=== PATIENT | male | born 1975 ===

== ENCOUNTER 2016-12-24 16:00 | Inpatient (IN) | payer BC ==
[2016-12-24] MEDS ORDERED: ceFAZolin 1 GM in Sodium Chloride 0.9% 100 ML IVPB ONE (16:24)
[2016-12-24] MEDS ORDERED: TDAP Vaccine 0.5 mL Syr IM ONE (16:25)
--- NOTE | 2016-12-24 16:52 | RAD ---
PROCEDURE: Right Knee Radiographs. HISTORY: COMPARISON: None available. FINDINGS: BONES: No acute displaced fracture. JOINTS: No dislocation. JOINT EFFUSION: Small suprapatellar joint effusion. OTHER FINDINGS: None. IMPRESSION: Small suprapatellar joint. No acute displaced fracture or dislocation identified. If symptoms persist, or if there is continued clinical concern, x-ray follow-up in 7-10 days should be considered.
--- NOTE | 2016-12-24 17:05 | ED PDOC ---
Lower Extremity Pain/Injury Chief Complaint (Nursing): Lower Extremity Problem/Injury Chief Complaint (Provider): left knee pain History Per: Patient History/Exam Limitations: no limitations Onset/Duration Of Symptoms: Days (x 2) Current Symptoms Are (Timing): Still Present Additional Complaint(s): Kamar Martinez is a 41 year old male, with no previous medical history, who presents to the ED with complaints of right knee pain with associated swelling secondary to being struck with an object 2 days ago while walking. Patient denies any fever, chills or IV drug abuse. He is unsure of last tetanus vaccination. PMD: none provided Past Medical History Reviewed: Historical Data, Nursing Documentation, Vital Signs Vital Signs: Last Vital Signs Temp 98.5 F 12/24/16 16:05 Pulse 88 12/24/16 16:05 Resp 16 12/24/16 16:05 BP 129/68 12/24/16 16:05 Pulse Ox 100 12/24/16 16:05 - Medical History PMH: No Chronic Diseases Denies: Diabetes, HTN - Surgical History Surgical History: Appendectomy - Family History Family History: States: Unknown Family Hx - Allergies Allergies/Adverse Reactions: Allergies Allergy/AdvReac Type Severity Reaction Status Date / Time No Known Allergies Allergy Verified 12/24/16 16:05 Review of Systems ROS Statement: Except As Marked, All Systems Reviewed And Found Negative Constitutional: Negative for: Fever, Chills Musculoskeletal: Positive for: Leg Pain (right knee pain ) Physical Exam - Reviewed Nursing Documentation Reviewed: Yes Vital Signs Reviewed: Yes - Physical Exam Appears: Positive for: Well, Non-toxic, No Acute Distress Extremity: Positive for: Capillary Refill (< 2 seconds ), Other (6 cm in diameter redness and heat fromt the right knee with small wound noted anteriorly by the patella. No effusion noted ). Negative for: Calf Tenderness, Deformity Neurologic/Psych: Positive for: Alert, Oriented - Laboratory Results Result Diagrams: 12/24/16 16:50 12/24/16 16:50 - ECG O2 Sat by Pulse Oximetry: 100 (RA) Pulse Ox Interpretation: Normal - Progress ED Course And Treament: VANCOMYCIN 1 GM IV ANCEF 1 GM IV TDAP 0.5 ML IM X1 DOSE KNEE XRY: SMALL SUPRAPATELLAR EFFUSION D/W DR. PADRON D/W DR. JAVED WILL CONSULT ORTHO CALL PLACED TO DR. AIME MCKEON Medical Decision Making Medical Decision Making: Initial Impression: right knee pain Initial Plan: * labs * lactic acid * erythrocyte sedimentation rate * x-ray right knee * ancef * boostrix vaccine * vancomycin * blood culture * reevaluation Scribe Attestation: Documented by Ginger Art, acting as a scribe for Leigha Hu PA-C. Provider Scribe Attestation: All medical record entries made by the Scribe were at my direction and personally dictated by me. I have reviewed the chart and agree that the record accurately reflects my personal performance of the history, physical exam, medical decision making, and the department course for this patient. I have also personally directed, reviewed, and agree with the discharge instructions and disposition. Disposition - Clinical Impression Clinical Impression: Cellulitis of knee - Patient ED Disposition Is Patient to be Admitted: Yes - Disposition Disposition Time: 18:32 Condition: FAIR - Pt Status Changed To: Hospital Disposition Of: Inpatient - Admit Certification Admit to Inpatient:: After my assessment, the patient will require hospitalization for at least two midnights. This is because of the severity of symptoms shown, intensity of services needed, and/or the medical risk in this patient being treated as an outpatient.
[2016-12-24] MEDS ORDERED: Vancomycin 1 g Inj ONE (17:09)
[2016-12-24 17:24] LABS: BASO % 0.2 % (0.0-2.0); EOS # 0.1 K/uL (0.0-0.7); EOS % 0.4 % (0.0-4.0); HEMATOCRIT 42.9 % (35.0-51.0); LYMPH # 2.6 K/uL (1.0-4.3); MEAN CELL VOLUME 88.1 fl (80.0-94.0); MEAN CORPUSCULAR HEMOGLOBIN 30.4 pg (27.0-31.0); MEAN CORPUSCULAR HGB CONC 34.5 g/dL (33.0-37.0); MEAN PLATELET VOLUME 7.9 fl (7.2-11.7); MONO # 1.7 K/uL (0.0-0.8); MONO % 10.3 % (0.0-10.0); NEUT # 11.7 K/uL (1.8-7.0); NEUT % 73.1 % (50.0-75.0); NRBC % 0.1 % (0.0-0.0); RED CELL DISTRIBUTION WIDTH 13.2 % (11.5-14.5)
[2016-12-24 17:29] LABS: ALB/GLOB RATIO 1.2 (1.0-2.1); ALKALINE PHOSPHATASE 75 U/L (38-126); ALT/SGPT 54 U/L (21-72); AST/SGOT 38 U/L (17-59); BILIRUBIN,TOTAL 0.6 mg/dl (0.2-1.3); BLOOD UREA NITROGEN 13 mg/dl (9-20); CALCIUM 9.5 mg/dL (8.4-10.2); CARBON DIOXIDE 27 mmol/L (22-30); CHLORIDE 102 mmol/L (98-107); GFR AFRICAN-AMERICAN > 60; GLUCOSE,RANDOM 92 mg/dL (75-110); POTASSIUM 3.9 MMOL/L (3.6-5.0); SODIUM 141 mmol/l (132-148); TOTAL PROTEIN 8.6 G/DL (6.3-8.2)
[2016-12-24] MEDS ORDERED: Oxycodone/Acetaminophen 5/325 mg Tab PO PRN (23:26)
[2016-12-25] MEDS ORDERED: Gadodiamide 287 MG/ML VIAL (15ML) IV ONE (08:22)
--- NOTE | 2016-12-25 11:22 | CP.PCM.CON ---
History of Present Illness - History of Present Illness History of Present Illness: Infectious Disease Consultation Note- Asked to see this patient at the request of for right knee cellulitis. HPI- Pt. is a 41 year old male with no PMH who was admitted with right knee pain, swelling and redness which as per pt. developed few days ago after insect bite. He states he felt slight itching at first on the knee and the next day the knee became swollen , red , warm and painful. He denies any discharge from the region. He states had fevr at home but not now. Denies any N/V, denies any COULTER, denies any cough, denies any sob, denies any chest pain, denies any abd. pain, denies any dysurea, denies any diarrhea. Denies any recent travel denies any pet exposure. denies any past h/o cellulitis. Pt. states he feels much better compared to admission and that his knee swelling has decreased compared to yesterday . PMHx: NC FHx: NC Social hx: denies x3 Allergies: NKDA Review of Systems - Review of Systems Review of Systems: ROS- see HPI please. Past Patient History - Past Medical History & Family History Past Medical History?: No - Past Social History Smoking Status: Never Smoked Alcohol: Social Drugs: Denies Home Situation {Lives}: With Family - CARDIAC Hx Cardiac Disorders: No - PULMONARY Hx Respiratory Disorders: No - NEUROLOGICAL Hx Neurological Disorder: No - HEENT Hx HEENT Problems: No - RENAL Hx Chronic Kidney Disease: No - ENDOCRINE/METABOLIC Hx Endocrine Disorders: No - HEMATOLOGICAL/ONCOLOGICAL Hx Blood Disorders: No - INTEGUMENTARY Hx Dermatological Problems: No - MUSCULOSKELETAL/RHEUMATOLOGICAL Hx Falls: No - GENITOURINARY/GYNECOLOGICAL Hx Genitourinary Disorders: Yes - PSYCHIATRIC Hx Substance Use: No - SURGICAL HISTORY Hx Surgeries: Yes Hx Appendectomy: Yes - ANESTHESIA Hx Anesthesia: No Hx Anesthesia Reactions: No Hx Malignant Hyperthermia: No Has any member of the family had a problem w/ anesthesia?: No Meds Allergies/Adverse Reactions: Allergies Allergy/AdvReac Type Severity Reaction Status Date / Time No Known Allergies Allergy Verified 12/24/16 16:05 - Medications Medications: Current Medications Acetaminophen (Tylenol 325mg Tab) 650 mg PO Q6 PRN PRN Reason: Fever >100.4 F Ibuprofen (Motrin Tab) 600 mg PO Q6 PRN PRN Reason: Pain, moderate (4-7) Oxycodone/Acetaminophen (Percocet 5/325 Mg Tab) 1 tab PO Q6 PRN PRN Reason: Pain, severe (8-10) Stop: 12/27/16 23:27 Last Admin: 12/25/16 02:41 Dose: 1 tab Physical Exam - Constitutional Appears: No Acute Distress - Head Exam Head Exam: ATRAUMATIC - Eye Exam Eye Exam: EOMI, PERRL - ENT Exam ENT Exam: Normal Oropharynx - Neck Exam Neck exam: Positive for: Full Rom - Respiratory Exam Respiratory Exam: Clear to Auscultation Bilateral, NORMAL BREATHING PATTERN - Cardiovascular Exam Cardiovascular Exam: RRR, +S1, +S2 - GI/Abdominal Exam GI & Abdominal Exam: Normal Bowel Sounds, Soft Additional comments: NT, ND - Extremities Exam Additional comments: Right patellar and suprapatellar region with some edema and warm to touch and erythematous, has FROM, no discharge minimal tenderness only to touch - Neurological Exam Neurological exam: Alert, Oriented x3 Results - Vital Signs Recent Vital Signs: Last Vital Signs Temp 98.6 F 12/25/16 07:39 Pulse 85 12/25/16 07:39 Resp 17 12/25/16 07:39 BP 123/79 12/25/16 07:39 Pulse Ox 98 12/25/16 07:39 - Labs Result Diagrams: 12/25/16 11:15 12/24/16 16:50 Labs: Laboratory Results - last 72 hr 12/24/16 12/24/16 12/24/16 16:50 16:50 16:50 WBC 16.0 H RBC 4.88 Hgb 14.8 Hct 42.9 MCV 88.1 MCH 30.4 MCHC 34.5 RDW 13.2 Plt Count 328 MPV 7.9 Neut % (Auto) 73.1 Lymph % (Auto) 16.0 L [place] % (Auto) 10.3 H Eos % (Auto) 0.4 Baso % (Auto) 0.2 Neut # 11.7 H Lymph # 2.6 [place] # 1.7 H Eos # 0.1 Baso # 0.0 ESR 45 H Sodium 141 Potassium 3.9 Chloride 102 Carbon Dioxide 27 Anion Gap 16 BUN 13 Creatinine 0.9 Est GFR ( Amer) > 60 Est GFR (Non-Af Amer) > 60 Random Glucose 92 Lactic Acid 1.7 Calcium 9.5 Total Bilirubin 0.6 AST 38 ALT 54 Alkaline Phosphatase 75 Total Protein 8.6 H Albumin 4.7 Globulin 3.9 Albumin/Globulin Ratio 1.2 12/25/16 11:15 WBC 14.9 H RBC 4.92 Hgb 14.6 Hct 43.6 MCV 88.6 MCH 29.7 MCHC 33.5 RDW 12.8 Plt Count 330 MPV 7.6 Neut % (Auto) 68.8 Lymph % (Auto) 17.1 L [place] % (Auto) 13.3 H Eos % (Auto) 0.4 Baso % (Auto) 0.4 Neut # 10.2 H Lymph # 2.5 [place] # 2.0 H Eos # 0.1 Baso # 0.1 ESR 56 H Sodium Potassium Chloride Carbon Dioxide Anion Gap BUN Creatinine Est GFR ( Amer) Est GFR (Non-Af Amer) Random Glucose Lactic Acid Calcium Total Bilirubin AST ALT Alkaline Phosphatase Total Protein Albumin Globulin Albumin/Globulin Ratio Accession No. : [id number] Patient Name / ID : CHAD YOST A / [id number] Exam Date : 12/24/2016 16:34:08 ( Approved ) Study Comment : Sex / Age : M / [id number] Creator : Jessi Magallon MD Dictator : Jessi Magallon MD Bench Hand : Office Analyst : Jessi Magallon MD Approver2 : Report Date : 12/24/2016 16:51:03 My Comment : PROCEDURE: Right Knee Radiographs. HISTORY: COMPARISON: None available. FINDINGS: BONES: No acute displaced fracture. JOINTS: No dislocation. JOINT EFFUSION: Small suprapatellar joint effusion. OTHER FINDINGS: None. IMPRESSION: Small suprapatellar joint. No acute displaced fracture or dislocation identified. If symptoms persist, or if there is continued clinical concern, x-ray follow-up in 7-10 days should be considered. Assessment & Plan (1) Cellulitis of knee Status: Acute - Assessment and Plan (Free Text) Assessment: A/P- 41 year old male with no PMH presents with right knee cellulitis. low grade fever and leukocytosis present but wbc trending down compared to admission. no fx based on plain xray report. plan- check blood cx x 2. await Knee MRI report r/o abscess and r/o Bursitis. Advise to cover with broad spectrum coverage for gram positives and MRSA , hence advise to start pt. on IV vancomycin pending further results. Keep trough <15. monitor wbc. If no resolution and if there is any fluid collection may need I and D. can apply warm compress to the region as well to help reduce inflammation. All above d/w patient at length and he verbalizes full understanding of all above. Thank you for allowing me to take part in the care of this patient.
[2016-12-25 11:30] LABS: BASO # 0.1 K/uL (0.0-0.2); BASO % 0.4 % (0.0-2.0); EOS # 0.1 K/uL (0.0-0.7); EOS % 0.4 % (0.0-4.0); HEMATOCRIT 43.6 % (35.0-51.0); LYMPH # 2.5 K/uL (1.0-4.3); LYMPH % 17.1 % (20.0-40.0); MEAN CELL VOLUME 88.6 fl (80.0-94.0); MEAN CORPUSCULAR HEMOGLOBIN 29.7 pg (27.0-31.0); MEAN CORPUSCULAR HGB CONC 33.5 g/dL (33.0-37.0); MEAN PLATELET VOLUME 7.6 fl (7.2-11.7); MONO % 13.3 % (0.0-10.0); NEUT # 10.2 K/uL (1.8-7.0); NEUT % 68.8 % (50.0-75.0); RED CELL DISTRIBUTION WIDTH 12.8 % (11.5-14.5); WHITE BLOOD COUNT 14.9 K/uL (4.8-10.8)
--- NOTE | 2016-12-25 11:37 | CP.PCM.HP ---
<Andressa Mcintyre - Last Filed: 12/25/16 11:34> History of Present Illness - History of Present Illness History of Present Illness: 41yo M with no PMHx admitted for right knee cellulitis. pain, swelling, erythema x4 days after trauma to the knee. a/w subjective fever. PMHx: NC SHx: appy FHx: NC Social hx: denies x3 Allergies: NKDA evaluated with attending Present on Admission - Present on Admission Any Indicators Present on Admission: No Review of Systems - Constitutional Constitutional: absent: Chills, Fever - Cardiovascular Cardiovascular: absent: Chest Pain - Respiratory Respiratory: absent: Dyspnea - Genitourinary Genitourinary: absent: Dysuria, Hematuria - Musculoskeletal Additional comments: right knee pain - Neurological Neurological: absent: Headaches Past Patient History - Past Medical History & Family History Past Medical History?: No - Past Social History Smoking Status: Never Smoked - CARDIAC Hx Cardiac Disorders: No - PULMONARY Hx Respiratory Disorders: No - NEUROLOGICAL Hx Neurological Disorder: No - HEENT Hx HEENT Problems: No - RENAL Hx Chronic Kidney Disease: No - ENDOCRINE/METABOLIC Hx Endocrine Disorders: No - HEMATOLOGICAL/ONCOLOGICAL Hx Blood Disorders: No - INTEGUMENTARY Hx Dermatological Problems: No - MUSCULOSKELETAL/RHEUMATOLOGICAL Hx Falls: No - GENITOURINARY/GYNECOLOGICAL Hx Genitourinary Disorders: Yes - PSYCHIATRIC Hx Substance Use: No - SURGICAL HISTORY Hx Surgeries: Yes Hx Appendectomy: Yes - ANESTHESIA Hx Anesthesia: No Hx Anesthesia Reactions: No Hx Malignant Hyperthermia: No Has any member of the family had a problem w/ anesthesia?: No Meds Allergies/Adverse Reactions: Allergies Allergy/AdvReac Type Severity Reaction Status Date / Time No Known Allergies Allergy Verified 12/24/16 16:05 Physical Exam - Constitutional Appears: Non-toxic, No Acute Distress - Head Exam Head Exam: NORMAL INSPECTION - Eye Exam Eye Exam: Normal appearance - ENT Exam ENT Exam: Mucous Membranes Moist - Neck Exam Neck exam: Positive for: Normal Inspection - Respiratory Exam Respiratory Exam: Clear to Auscultation Bilateral - Cardiovascular Exam Cardiovascular Exam: REGULAR RHYTHM - GI/Abdominal Exam GI & Abdominal Exam: Normal Bowel Sounds, Soft - Extremities Exam Extremities exam: Positive for: tenderness (right knee) Additional comments: right knee erythema, no induration/fluctuance - Back Exam Back exam: NORMAL INSPECTION - Neurological Exam Neurological exam: Alert, Oriented x3 - Skin Skin Exam: Dry, Warm Results - Vital Signs Recent Vital Signs: Last Vital Signs Temp 98.6 F 12/25/16 07:39 Pulse 85 12/25/16 07:39 Resp 17 12/25/16 07:39 BP 123/79 12/25/16 07:39 Pulse Ox 98 12/25/16 07:39 - Labs Result Diagrams: 12/24/16 16:50 12/24/16 16:50 Assessment & Plan - Assessment and Plan (Free Text) Assessment: 41yo M with no PMHx admitted for right knee cellulitis. cellulitis -ortho c/s -ID c/s -ancef/vanco -MRI DVT ppx -SCDs Decision To Admit - Pt Status Changed To: Hospital Disposition Of: Inpatient - Admit Certification Admit to Inpatient:: After my assessment, the patient will require hospitalization for at least two midnights. This is because of the severity of symptoms shown, intensity of services needed, and/or the medical risk in this patient being treated as an outpatient. - . Bed Request Type: Med/Surg Admitting Physician: Dedrick Vee <Dedrick Vee - Last Filed: 12/28/16 17:51> Results - Vital Signs Recent Vital Signs: Last Vital Signs Temp 98.8 F 12/28/16 16:21 Pulse 79 12/28/16 16:21 Resp 20 12/28/16 16:21 BP 136/75 12/28/16 16:21 Pulse Ox 97 12/28/16 16:21 - Labs Result Diagrams: 12/28/16 07:05 12/28/16 07:05 Labs: Laboratory Results - last 24 hr 12/28/16 12/28/16 12/28/16 07:05 07:05 07:05 WBC 9.8 RBC 4.73 Hgb 14.1 Hct 41.6 MCV 87.9 MCH 29.9 MCHC 34.0 RDW 13.0 Plt Count 387 Sodium 141 Potassium 3.9 Chloride 104 Carbon Dioxide 27 Anion Gap 15 BUN 12 Creatinine 1.0 Est GFR ( Amer) > 60 Est GFR (Non-Af Amer) > 60 Random Glucose 96 Calcium 9.3 Vancomycin Trough 8.4 Assessment & Plan - Assessment and Plan (Free Text) Assessment: Patient seen and examined with residents in rounds. Case, condition, investigative work up and plan discussed in detail. Agree with residents progress note. Plan: As ordered. (Dedrick Vee MD)
--- NOTE | 2016-12-25 13:03 | MRI ---
MRI right knee History: Cellulitis. Evaluate for septic arthritis. Comparison: None available. Technique: Multi-echo multiplanar sequences were performed through the right knee without and with the use of intravenous contrast. Findings: Prominent reticulation and edema with fluid noted within the prepatellar soft tissues consistent with a prominent prepatellar bursitis. Within the soft tissues anterior to the patellar tendon there is a peripherally enhancing collection measuring 2.1 x 1.6 x 2.8 centimeters which may represent a prepatellar abscess collection. No signal abnormality within the adjacent bony patella to suggest acute osteomyelitis. No significant knee joint effusion to suggest a septic arthritis. Thinning and attenuation with fraying of the visualized anterior cruciate ligament suggestive for a moderate grade sprain with some interstitial delamination. Moderate grade sprain of the posterior cruciate ligament. Limited evaluation of the menisci given lack of PD fat sat and STIR sequences. Globular increased signal seen within the posterior horn of the medial meniscus extending to the articular surface suggestive for intrasubstance degeneration and or partial tear. Linear grade 1 intrasubstance degeneration and or partial tearing in the anterior root and horn of the lateral meniscus. Circumferential reticulation and edema within the soft tissues. Medial collateral ligament is preserved. Lateral collateral ligament complex structures are preserved. Quadriceps tendon is preserved. Patellar tendon is preserved. Focal cartilage thinning and loss overlying the patellar apex and lateral aspect of the medial patellar facet. Moderate grade strains of the medial and lateral patellar retinaculum. Mild cartilage thinning overlying the anterior aspect of the medial femoral condyle. No significant suprapatellar joint effusion. Trace posterior Begum's cyst. Impression: 1. Prominent reticulation and edema with fluid noted within the prepatellar soft tissues consistent with a prominent prepatellar bursitis. Within the soft tissues anterior to the patellar tendon there is a peripherally enhancing collection measuring 2.1 x 1.6 x 2.8 centimeters which may represent a prepatellar abscess collection. No signal abnormality within the adjacent bony patella to suggest acute osteomyelitis. No significant knee joint effusion to suggest a septic arthritis. 2. Thinning and attenuation with fraying of the visualized anterior cruciate ligament suggestive for a moderate grade sprain with some interstitial delamination. 3. Moderate grade sprain of the posterior cruciate ligament. 4. Limited evaluation of the menisci given lack of PD fat sat and STIR sequences. Globular increased signal seen within the posterior horn of the medial meniscus extending to the articular surface suggestive for intrasubstance degeneration and or partial tear. 5. Linear grade 1 intrasubstance degeneration and or partial tearing in the anterior root and horn of the lateral meniscus. 6. Circumferential reticulation and edema within the soft tissues. 7. Focal cartilage thinning and loss overlying the patellar apex and lateral aspect of the medial patellar facet. 8. Moderate grade strains of the medial and lateral patellar retinaculum. 9. Mild cartilage thinning overlying the anterior aspect of the medial femoral condyle. 10. Trace posterior Begum's cyst.
--- NOTE | 2016-12-25 14:28 | CP.PCM.CON ---
History of Present Illness - History of Present Illness History of Present Illness: 41 yo male presents to ER yesterday with right knee swelling,redness,warmth and pain >with bending x 2 day's,pt states he thinks he was bit by an insect 4 day' s ago,scratched raised bite causing an abrasion,no local wound care done, symptoms worsening daily which brought pt to ER for further evaluation,felt feverish yesterday,temp not taken,given a dose of Vanco/Ancef and tetanus in ER, currently on Ancef and pt states redness,edema and pain improved since yesterday ,denies trauma,paresthesias,fall,inability to ambulation or prior knee c/o. 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 Alcohol: Occasional Drugs: Denies Home Situation {Lives}: With Family - CARDIAC Hx Cardiac Disorders: No - PULMONARY Hx Respiratory Disorders: No - NEUROLOGICAL Hx Neurological Disorder: No - HEENT Hx HEENT Problems: No - RENAL Hx Chronic Kidney Disease: No - ENDOCRINE/METABOLIC Hx Endocrine Disorders: No - HEMATOLOGICAL/ONCOLOGICAL Hx Blood Disorders: No - INTEGUMENTARY Hx Dermatological Problems: No - MUSCULOSKELETAL/RHEUMATOLOGICAL Hx Falls: No - GENITOURINARY/GYNECOLOGICAL Hx Genitourinary Disorders: Yes - PSYCHIATRIC Hx Substance Use: No - SURGICAL HISTORY Hx Surgeries: Yes Hx Appendectomy: Yes - ANESTHESIA Hx Anesthesia: No Hx Anesthesia Reactions: No Hx Malignant Hyperthermia: No Has any member of the family had a problem w/ anesthesia?: No Meds Allergies/Adverse Reactions: Allergies Allergy/AdvReac Type Severity Reaction Status Date / Time No Known Allergies Allergy Verified 12/24/16 16:05 - Medications Medications: Current Medications Acetaminophen (Tylenol 325mg Tab) 650 mg PO Q6 PRN PRN Reason: Fever >100.4 F Vancomycin HCl 1 gm/ Sodium (Chloride) 250 mls @ 166.667 mls/hr IVPB DAILY [facility] Cefazolin Sodium 1 gm/ Sodium (Chloride) 100 mls @ 100 mls/hr IVPB Q12 [facility] Vancomycin HCl 1 gm/ Sodium (Chloride) 250 mls @ 166.667 mls/hr IVPB Q12 [facility] Ibuprofen (Motrin Tab) 600 mg PO Q6 PRN PRN Reason: Pain, moderate (4-7) Oxycodone/Acetaminophen (Percocet 5/325 Mg Tab) 1 tab PO Q6 PRN PRN Reason: Pain, severe (8-10) Stop: 12/27/16 23:27 Last Admin: 12/25/16 02:41 Dose: 1 tab Physical Exam - Constitutional Appears: Well, Non-toxic, No Acute Distress - Head Exam Head Exam: ATRAUMATIC, NORMAL INSPECTION, NORMOCEPHALIC - Eye Exam Eye Exam: EOMI, Normal appearance, PERRL Pupil Exam: NORMAL ACCOMODATION, PERRL - ENT Exam ENT Exam: Mucous Membranes Moist - Neck Exam Neck exam: Positive for: Normal Inspection - Respiratory Exam Respiratory Exam: Clear to Auscultation Bilateral, NORMAL BREATHING PATTERN - Cardiovascular Exam Cardiovascular Exam: REGULAR RHYTHM, +S1, +S2 - GI/Abdominal Exam GI & Abdominal Exam: Normal Bowel Sounds, Soft - Extremities Exam Additional comments: + patella and peripatellar erythema,warmth and tenderness extending laterally, minimal peripatellar edema,+ full ROM,pain with hyperflexion >105 degree's, thrombosed abrasion with mild induration,+ 2 pulses throughout,sensation intact, motor strength 5/5,neg laxity. - Back Exam Back exam: NORMAL INSPECTION - Neurological Exam Neurological exam: Alert, Oriented x3 - Psychiatric Exam Psychiatric exam: Normal Affect, Normal Mood - Skin Skin Exam: Abrasion, Warm Results - Vital Signs Recent Vital Signs: Last Vital Signs Temp 98.6 F 12/25/16 07:39 Pulse 85 12/25/16 07:39 Resp 17 12/25/16 07:39 BP 123/79 12/25/16 07:39 Pulse Ox 98 12/25/16 07:39 - Labs Result Diagrams: 12/25/16 11:15 12/24/16 16:50 Labs: Laboratory Results - last 24 hr 12/25/16 11:15 WBC 14.9 H RBC 4.92 Hgb 14.6 Hct 43.6 MCV 88.6 MCH 29.7 MCHC 33.5 RDW 12.8 Plt Count 330 MPV 7.6 Neut % (Auto) 68.8 Lymph % (Auto) 17.1 L [place] % (Auto) 13.3 H Eos % (Auto) 0.4 Baso % (Auto) 0.4 Neut # 10.2 H Lymph # 2.5 [place] # 2.0 H Eos # 0.1 Baso # 0.1 ESR 56 H - Impressions Impression: MRI and XR's reviewed by Dr. Hein Assessment & Plan - Assessment and Plan (Free Text) Assessment: 41 yo male s/p insect bite with right knee cellulitis on abx,prepatellar bursitis,small prepatellar abscess,without sign of OM and partial lateral meniscal tear/Hemodynamically stable. Plan: Pt may possibly need a local I and D of prepatella abscess,cont ABX/per I.D. appropriate coverage,d/w patient,images reviewed with and case d/w Dr. Hein.
[2016-12-25] MEDS ORDERED: ceFAZolin 1 GM in Sodium Chloride 0.9% 100 ML IVPB SCH ×2 (16:00→21:00)
--- NOTE | 2016-12-25 22:47 | CP.PCM.CON ---
History of Present Illness - History of Present Illness History of Present Illness: 41-year-old male with no significant past medical history presented to the emergency room at [facility] [place] [facility] on 12/24/16 with right knee pain, swelling, redness for 4 days. Patient states that approximately 4 days ago he believes he was bitten by a bug at the anterior aspect of his R knee. Since then he first developed itching which then progressed to redness and swelling localized to the anterior aspect of his R knee. Eventually by 12/24/16 the pain became so significant that he came to the ER. On evaluation by ER staff and review of imaging he was diagnosed with R knee cellulitis/prepatellar bursitis with possible collection. he was admitted to the medical service under Dr. Vee and an orthopedic consultation was placed. I evaluated the patient as an inpatient on 12/25/16 at [facility]. I confirmed the above history. he states that he has no difficulty with ambulation and that he is able to obtain full range of motion with pain localized to the anterior aspect of the knee. He denies any fevers, chills, headache, nausea vomiting, chest pain, shortness of breath, numbness, tingling, calf pain. review of imaging: x-rays R knee, 12/24/16:no fracture or dislocation MRI R knee done with and without contrast, 12/25/16: 1. Prominent reticulation and edema with fluid noted within the prepatellar soft tissues consistent with a prominent prepatellar bursitis. Within the soft tissues anterior to the patellar tendon there is a peripherally enhancing collection measuring 2.1 x 1.6 x 2.8 centimeters which may represent a prepatellar abscess collection. No signal abnormality within the adjacent bony patella to suggest acute osteomyelitis. No significant knee joint effusion to suggest a septic arthritis. 2. Thinning and attenuation with fraying of the visualized anterior cruciate ligament suggestive for a moderate grade sprain with some interstitial delamination. 3. Moderate grade sprain of the posterior cruciate ligament. 4. Limited evaluation of the menisci given lack of PD fat sat and STIR sequences. Globular increased signal seen within the posterior horn of the medial meniscus extending to the articular surface suggestive for intrasubstance degeneration and or partial tear. 5. Linear grade 1 intrasubstance degeneration and or partial tearing in the anterior root and horn of the lateral meniscus. 6. Circumferential reticulation and edema within the soft tissues. 7. Focal cartilage thinning and loss overlying the patellar apex and lateral aspect of the medial patellar facet. 8. Moderate grade strains of the medial and lateral patellar retinaculum. 9. Mild cartilage thinning overlying the anterior aspect of the medial femoral condyle. 10. Trace posterior Begum's cyst. Past Patient History - Infectious Disease Hx of Infectious Diseases: None - Tetanus Immunizations Tetanus Immunization: Up to Date - Past Medical History & Family History Past Medical History?: No - Past Social History Smoking Status: Never Smoked Alcohol: Social Drugs: Denies Home Situation {Lives}: With Family - CARDIAC Hx Cardiac Disorders: No - PULMONARY Hx Respiratory Disorders: No - NEUROLOGICAL Hx Neurological Disorder: No - HEENT Hx HEENT Problems: No - RENAL Hx Chronic Kidney Disease: No - ENDOCRINE/METABOLIC Hx Endocrine Disorders: No - HEMATOLOGICAL/ONCOLOGICAL Hx Blood Disorders: No - INTEGUMENTARY Hx Dermatological Problems: No - MUSCULOSKELETAL/RHEUMATOLOGICAL Hx Falls: No - GENITOURINARY/GYNECOLOGICAL Hx Genitourinary Disorders: Yes - PSYCHIATRIC Hx Substance Use: No - SURGICAL HISTORY Hx Surgeries: Yes Hx Appendectomy: Yes - ANESTHESIA Hx Anesthesia: No Hx Anesthesia Reactions: No Hx Malignant Hyperthermia: No Has any member of the family had a problem w/ anesthesia?: No Meds Allergies/Adverse Reactions: Allergies Allergy/AdvReac Type Severity Reaction Status Date / Time No Known Allergies Allergy Verified 12/24/16 16:05 - Medications Medications: Current Medications Acetaminophen (Tylenol 325mg Tab) 650 mg PO Q6 PRN PRN Reason: Fever >100.4 F Vancomycin HCl 1 gm/ Sodium (Chloride) 250 mls @ 166.667 mls/hr IVPB Q12 SHO Last Admin: 12/25/16 21:15 Dose: 166.667 mls/hr Lactated Ringer's (Lactated Ringer's) 1,000 mls @ 75 mls/hr IV .[id number] SHO Ibuprofen (Motrin Tab) 600 mg PO Q6 PRN PRN Reason: Pain, moderate (4-7) Last Admin: 12/25/16 15:40 Dose: 600 mg Oxycodone/Acetaminophen (Percocet 5/325 Mg Tab) 1 tab PO Q6 PRN PRN Reason: Pain, severe (8-10) Stop: 12/27/16 23:27 Last Admin: 12/25/16 02:41 Dose: 1 tab Physical Exam - Extremities Exam Additional comments: right lower extremity: Knee: Significant area of blanching erythema and tenderness at the anterior knee inferior to the patella at the prepatellar area, area of warmth and blanching erythemameasures approximately 6 cm x 7 cm with a central area of fluctuance measuring approximately 2 cm x 2 cm with no visible area of drainage. There is a scab/Neal from the bug bite that is visible at the center of the area of fluctuance Significant tenderness to palpation at this area as well with warmth no instability, full range of motion at hip and ankle and toes without pain, painless arc of range of motion from 0-110 without pain in at knee joint +5/5 motor strength hip flexion/extension, knee flexion/extension, ankle dorsiflexion/plantarflexion, toes up and down Sensory intact L2-S2, DPN/TN/SPN brisk cap refill all toes, 2+ dorsalis pedis pulse Left lower extremity: No area of tenderness to palpation, no swelling/warmth/ erythema, no instability, skin intact Full range of motion all joints without pain +5/5 motor strength hip flexion/extension, knee flexion/extension, ankle dorsiflexion/plantarflexion, toes up and down Sensory intact L2-S2, DPN/TN/SPN brisk cap refill all toes, 2+ dorsalis pedis pulse Results - Vital Signs Recent Vital Signs: Last Vital Signs Temp 99.7 F H 12/25/16 16:30 Pulse 93 H 12/25/16 16:30 Resp 20 12/25/16 16:30 BP 119/74 12/25/16 16:30 Pulse Ox 97 12/25/16 16:30 - Labs Result Diagrams: 12/25/16 11:15 12/24/16 16:50 Labs: Laboratory Results - last 24 hr 12/24/16 12/25/16 20:45 11:15 WBC 14.9 H RBC 4.92 Hgb 14.6 Hct 43.6 MCV 88.6 MCH 29.7 MCHC 33.5 RDW 12.8 Plt Count 330 MPV 7.6 Neut % (Auto) 68.8 Lymph % (Auto) 17.1 L [place] % (Auto) 13.3 H Eos % (Auto) 0.4 Baso % (Auto) 0.4 Neut # 10.2 H Lymph # 2.5 [place] # 2.0 H Eos # 0.1 Baso # 0.1 ESR 56 H C-React Prot High Sens > 15.00 H Assessment & Plan (1) Abscess of bursa of right knee Assessment and Plan: 41-year-old male with no significant PMH presented to the ER at [facility] on with R knee pain/redness/warmth localized to the anterior aspect of the knee progressively worsening over the past 5 days He believes that this originated as a bug bite. DX = right knee #1 septic prepatellar bursitis #2 abscess of prepatellar bursa #3 anterior cellulitis Plan: R knee: -clinically, anterior knee cellulitis with septic prepatellar bursitis and an area of focal abscess/collection, confirmed on MRI measures 2.1 x 1.6 x 2.8 cm -WBC 16, ESR 45, blood cx's (-) -Indicated for I&D, placement of packing, acquisition of formal cultures, the risks/benefits/alternatives to the procedure were discussed at length with the patient and with the use of a [place]ian speaking sausage mixer although he has good working knowledge of the [place] language. All questions were answered, they accepted the risks and wished to proceed with surgery -IV antibiotics have already been started during this admission, he has already received multiple doses, there is a significant chance of false negative cultures -placed on the add-on schedule for surgery tomorrow -Nothing by mouth after midnight -IV fluid hydration -Pain control -Continue ID consult recommendations -hold DVT prophylaxis -No restrictions to activity -I communicated the above plan with the primary team/, he will evaluate the patient tomorrow -Please contact me with any questions, concerns, updates at [phone] thank you for allowing me to participate in the care of your patient Brian Fountain MD Orthopedic Surgery Status: Acute (2) Cellulitis of knee Status: Acute
[2016-12-26] MEDS: Lactated Ringer's 1,000 ML IV SCH ×2 (00:26→13:29)
[2016-12-26 07:46] LABS: HEMATOCRIT 42.6 % (35.0-51.0); MEAN CELL VOLUME 88.5 fl (80.0-94.0); MEAN CORPUSCULAR HEMOGLOBIN 29.5 pg (27.0-31.0); MEAN CORPUSCULAR HGB CONC 33.3 g/dL (33.0-37.0); RED CELL DISTRIBUTION WIDTH 13.2 % (11.5-14.5); WHITE BLOOD COUNT 13.8 K/uL (4.8-10.8)
[2016-12-26 08:02] LABS: ALB/GLOB RATIO 1.2 (1.0-2.1); ALKALINE PHOSPHATASE 68 U/L (38-126); ALT/SGPT 53 U/L (21-72); AST/SGOT 38 U/L (17-59); BILIRUBIN,TOTAL 0.5 mg/dl (0.2-1.3); BLOOD UREA NITROGEN 10 mg/dl (9-20); CALCIUM 9.3 mg/dL (8.4-10.2); CARBON DIOXIDE 29 mmol/L (22-30); CHLORIDE 101 mmol/L (98-107); GFR AFRICAN-AMERICAN > 60; GLUCOSE,RANDOM 96 mg/dL (75-110); POTASSIUM 4.3 MMOL/L (3.6-5.0); SODIUM 140 mmol/l (132-148); TOTAL PROTEIN 7.5 G/DL (6.3-8.2)
[2016-12-26 10:52] LABS: PARTIAL THROMBOPLASTIN TIME 30.4 SECONDS (23.3-32.5)
--- NOTE | 2016-12-26 13:06 | RAD ---
HISTORY: Admission; pre-op COMPARISON: No prior. TECHNIQUE: Chest PA and lateral FINDINGS: LUNGS: Poor inspiration with low lung volumes, mild crowded bronchovascular markings and mild bibasilar atelectasis. PLEURA: No significant pleural effusion identified. No pneumothorax apparent. CARDIOVASCULAR: Normal. OSSEOUS STRUCTURES: No significant abnormalities. VISUALIZED UPPER ABDOMEN: Normal. OTHER FINDINGS: None. IMPRESSION: Poor inspiration with low lung volumes, mild crowded bronchovascular markings and mild bibasilar atelectasis.
[2016-12-26] MEDS ORDERED: Midazolam 2 MG/2 ML VIAL ONE (14:24)
[2016-12-26] MEDS ORDERED: Propofol 10 mg/ml Inj (20 ML) ONE (14:24)
--- NOTE | 2016-12-26 15:31 | CP.PCM.PN ---
Subjective - Date & Time of Evaluation Date of Evaluation: 12/26/16 Objective - Vital Signs/Intake and Output Vital Signs (last 24 hours): Temp Pulse Resp BP Pulse Ox 98.3 F 89 16 115/73 97 12/26/16 07:37 12/26/16 07:37 12/26/16 07:37 12/26/16 07:37 12/26/16 07:37 - Medications Medications: Current Medications Acetaminophen (Tylenol 325mg Tab) 650 mg PO Q6 PRN PRN Reason: Fever >100.4 F Vancomycin HCl 1 gm/ Sodium (Chloride) 250 mls @ 166.667 mls/hr IVPB Q12 SHO Last Admin: 12/26/16 08:09 Dose: 166.667 mls/hr Lactated Ringer's (Lactated Ringer's) 1,000 mls @ 75 mls/hr IV .[id number] [facility] Last Admin: 12/26/16 13:29 Dose: Not Given Ibuprofen (Motrin Tab) 600 mg PO Q6 PRN PRN Reason: Pain, moderate (4-7) Last Admin: 12/25/16 15:40 Dose: 600 mg Oxycodone/Acetaminophen (Percocet 5/325 Mg Tab) 1 tab PO Q6 PRN PRN Reason: Pain, severe (8-10) Stop: 12/27/16 23:27 Last Admin: 12/25/16 02:41 Dose: 1 tab - Labs Labs: 12/26/16 06:25 12/26/16 06:25 PT 11.1 SECONDS (9.6-11.2) 12/26/16 10:00 INR 1.07 (0.92-1.08) 12/26/16 10:00 APTT 30.4 SECONDS (23.3-32.5) 12/26/16 10:00 Assessment and Plan (1) Cellulitis of knee Status: Acute
--- NOTE | 2016-12-26 15:48 | CP.PCM.PN ---
<Andressa Mcintyre - Last Filed: 12/26/16 15:46> Subjective - Date & Time of Evaluation Date of Evaluation: 12/26/16 Time of Evaluation: 15:46 - Subjective Subjective: evaluated with attending. no overnight events. denies pain or drainage of right knee. denies chest pain, SOB, abd pain. Objective - Vital Signs/Intake and Output Vital Signs (last 24 hours): Temp Pulse Resp BP Pulse Ox 98.3 F 89 16 115/73 97 12/26/16 07:37 12/26/16 07:37 12/26/16 07:37 12/26/16 07:37 12/26/16 07:37 - Medications Medications: Current Medications Acetaminophen (Tylenol 325mg Tab) 650 mg PO Q6 PRN PRN Reason: Fever >100.4 F Vancomycin HCl 1 gm/ Sodium (Chloride) 250 mls @ 166.667 mls/hr IVPB Q12 SHO Last Admin: 12/26/16 08:09 Dose: 166.667 mls/hr Lactated Ringer's (Lactated Ringer's) 1,000 mls @ 75 mls/hr IV .[id number] [facility] Last Admin: 12/26/16 13:29 Dose: Not Given Ibuprofen (Motrin Tab) 600 mg PO Q6 PRN PRN Reason: Pain, moderate (4-7) Last Admin: 12/25/16 15:40 Dose: 600 mg Oxycodone/Acetaminophen (Percocet 5/325 Mg Tab) 1 tab PO Q6 PRN PRN Reason: Pain, severe (8-10) Stop: 12/27/16 23:27 Last Admin: 12/25/16 02:41 Dose: 1 tab - Labs Labs: 12/26/16 06:25 12/26/16 06:25 PT 11.1 SECONDS (9.6-11.2) 12/26/16 10:00 INR 1.07 (0.92-1.08) 12/26/16 10:00 APTT 30.4 SECONDS (23.3-32.5) 12/26/16 10:00 - Constitutional Appears: Non-toxic, No Acute Distress - Head Exam Head Exam: ATRAUMATIC, NORMAL INSPECTION - Eye Exam Eye Exam: Normal appearance - ENT Exam ENT Exam: Mucous Membranes Moist - Neck Exam Neck Exam: Normal Inspection - Respiratory Exam Respiratory Exam: Clear to Ausculation Bilateral - Cardiovascular Exam Cardiovascular Exam: REGULAR RHYTHM - GI/Abdominal Exam GI & Abdominal Exam: Soft - Extremities Exam Extremities Exam: absent: Pedal Edema Additional comments: right knee: erythema, warm, induration, fluctuance. no discharge - Back Exam Back Exam: NORMAL INSPECTION - Neurological Exam Neurological Exam: Alert, Oriented x3 - Skin Skin Exam: Dry, Warm Assessment and Plan - Assessment and Plan (Free Text) Assessment: 41yo M with no PMHx admitted for right knee cellulitis. cellulitis -blood cx NGTD -ortho on board, appreciate input -ID on board, appreciate input -vanco -MRI: no osteo, prepatellar bursitis/cellulitis -medically cleared for I&D today DVT ppx -SCDs <Vee,Dedrick K - Last Filed: 12/28/16 17:59> Objective - Vital Signs/Intake and Output Vital Signs (last 24 hours): Temp Pulse Resp BP Pulse Ox 98.8 F 79 20 136/75 97 12/28/16 16:21 12/28/16 16:21 12/28/16 16:21 12/28/16 16:21 12/28/16 16:21 - Medications Medications: Current Medications Acetaminophen (Tylenol 325mg Tab) 650 mg PO Q6 PRN PRN Reason: Fever >100.4 F Enoxaparin Sodium (Lovenox) 40 mg SC DAILY [facility] PRN Reason: Protocol Last Admin: 12/28/16 12:33 Dose: 40 mg Vancomycin HCl 1 gm/ Sodium (Chloride) 250 mls @ 166.667 mls/hr IVPB Q12 SHO Last Admin: 12/28/16 09:27 Dose: 166.667 mls/hr Lactated Ringer's (Lactated Ringer's) 1,000 mls @ 75 mls/hr IV .[id number] [facility] Last Admin: 12/28/16 05:54 Dose: Not Given Ibuprofen (Motrin Tab) 600 mg PO Q6 PRN PRN Reason: Pain, moderate (4-7) Last Admin: 12/25/16 15:40 Dose: 600 mg Zolpidem Tartrate (Ambien) 5 mg PO HS PRN PRN Reason: Sleep Last Admin: 12/27/16 23:22 Dose: 5 mg - Labs Labs: 12/28/16 07:05 12/28/16 07:05 PT 11.1 SECONDS (9.6-11.2) 12/26/16 10:00 INR 1.07 (0.92-1.08) 12/26/16 10:00 APTT 30.4 SECONDS (23.3-32.5) 12/26/16 10:00 Assessment and Plan - Assessment and Plan (Free Text) Assessment: Patient seen and examined with residents in rounds. Case, condition, investigative work up and plan discussed in detail. Agree with residents progress note. Plan: As ordered. (Dedrick Vee MD)
[2016-12-26] MEDS ORDERED: Lactated Ringer's 1,000 ML IV ONE ×2 (16:10→16:14)
[2016-12-26] MEDS ORDERED: SODIUM CHLORIDE 3,000 ML IR ONE ×2 (16:10)
[2016-12-26] MEDS ORDERED: HYDROmorphone 0.5 mg/0.5 ml ISec IVP PRN (16:19)
--- NOTE | 2016-12-26 16:24 | PCM.SURG1 ---
<Crystal Wallis - Last Filed: 12/26/16 16:23> Surgeon's Initial Post Op Note - Surgeon's Notes Surgeon: Александр Dye House Helper: Grayson Type of Anesthesia: General LMA Pre-Operative Diagnosis: Right knee infection Operative Findings: See dictation Post-Operative Diagnosis: SAME Operation Performed: Incision and drainage of right knee Specimen/Specimens Removed: Right knee cultures Estimated Blood Loss: EBL {In ML}: 5 Blood Products Given: N/A Drains Used: No Drains Post-Op Condition: Good Date of Surgery/Procedure: 12/26/16 Time of Surgery/Procedure: 16:00 <Brian eHin - Last Filed: 12/26/16 20:31> Surgeon's Initial Post Op Note - Surgeon's Notes Pre-Operative Diagnosis: Right knee #1 septic prepatellar bursitis after bug bite. #2 prepatellar abscess of bursa. #3 anterior cellulitis Post-Operative Diagnosis: Right knee #1 septic prepatellar bursitis after bug bite. #2 prepatellar abscess of bursa. #3 anterior cellulitis. #4 no evidence of septic arthritis or extension of infection intra-articularly Specimen/Specimens Removed: R knee prepatellar abscess cx's x3/ AFB & Fungus/ anaerobic cx to micro. R knee abscess to pathology
[2016-12-26] MEDS ORDERED: Piperacillin/Tazobact 3.375 GM in Sodium Chloride 0.9% 100 ML IVPB SCH (17:00)
[2016-12-26] MEDS ORDERED: HYDROmorphone 0.5 mg/0.5 ml ISec IVP ONE (17:42)
--- NOTE | 2016-12-27 00:13 | OP ---
PROCEDURE DATE: 12/26/2016 DATE OF SURGERY: 12/26/2016. PREOPERATIVE DIAGNOSES: Right knee: 1. Septic prepatellar bursitis after bug bite. 2. Prepatellar abscess of bursa. 3. Anterior cellulitis of knee. POSTOPERATIVE DIAGNOSES: Right knee: 1. Septic prepatellar bursitis after bug bite. 2. Prepatellar abscess of bursa. 3. Anterior cellulitis of knee. PROCEDURE: Right knee: 1. Irrigation and debridement of septic prepatellar bursitis abscess. 2. Open prepatellar bursectomy. 3. Acquisition of cultures and biopsy of abscess tissue. 4. Placement of iodoform packing. SURGEON: Brian Fountain MD SALES AND MARKETING ADMINISTRATOR: Crystal PGY-3 podiatry resident. ANESTHESIA: General LMA anesthesia. SPECIMENS: Prepatellar abscess cultures x 3 sent to microbiology, AFB and fungus sent to microbiolog y specimens, anaerobic cultures sent to microbiology, right knee abscess tissue sent to pathology. ESTIMATED BLOOD LOSS: 5 mL. TOURNIQUET TIME: Zero minutes. IMPLANTS: None. DRAINS: None, iodoform packing was placed in wound. DISPOSITION: The patient was extubated and transferred to PACU in stable condition and tolerated the procedure well. INDICATIONS FOR SURGERY: The patient is a 41-year-old male with no significant past medical history who presents to the Emergency Room at [facility] on 12/24/2016 with right knee pain, swelling and redness for 4 days. The patient stated that, approximately 4 days prior to admis nicolasa, he was bitten by a bug at the anterior aspect of his right knee. Since then, he first develope d itching, which progressed to redness and swelling localized to the anterior aspect of his right kne e. Eventually, by the late evening of 12/24/2016, the pain became so significant that he came to the ER. On evaluation by ER staff and review of imaging, he was diagnosed with right knee cellulitis/pr epatellar bursitis with possible collection. He was admitted to the medical service under Dr. Dedrick Vee and an orthopedic consultation was placed the next day. I evaluated the patient as an inpatien t on the day of the consultation on 12/25/2016 at [facility]. I confirmed the above history with the patient personally with the use of a Palestinian-speaking card hanger, though the patient does have working knowledge of the Tristanian language. The patient stated that he had no diffi culty with ambulation and he was able to obtain full range of motion, albeit with pain at high flexio n localized to the anterior aspect of his knee, but it did not interfere with his range of motion and he was able to work for the past 4 days. He denied any fevers, chills, headache, nausea and vomitin g, chest pain, shortness of breath, numbness, tingling or calf pain. REVIEW OF IMAGING: X-rays of the right knee done on 12/24/2016 were read as no fracture or dislocati on with some soft tissue swelling anteriorly. MRI of the right knee done with and without contrast on 12/25/2016 was read as: 1. Prominent reticulation and edema with fluid noted in the prepatellar soft tissue consistent with prominent prepatellar bursitis. Within the soft tissues anterior to the patellar tendon, there was a peripherally enhancing collection measuring 2.1 cm x 1.6 cm x 2.8 cm, which may represent a prepatel lar abscess collection. No signal abnormality within the adjacent bony patella to suggest acute oste omyelitis. No significant joint effusion to suggest a septic arthritis. 2. Thinning and attenuation with fraying of the visualized ACL suggestive for moderate grade sprain with some interstitial delamination. 3. Moderate-grade sprain of the posterior cruciate ligament. 4. Limited evaluation of menisci given lack of PD, fat sat, and STIR sequences. Globular increased signal seen within the posterior horn of medial meniscus extending to articular surface suggestive fo r intrasubstance degeneration or partial tear. 5. Linear grade I intrasubstance degeneration and/or partial tearing in the anterior root and horn o f the lateral meniscus. 6. Circumferential reticulation edema within the soft tissue. 7. Focal cartilage thinning and loss overlying patellar apex on the lateral aspect of the medial pat ellar facet. 8. Moderate-grade strains of the medial and lateral patellar retinaculum. 9. Mild cartilage thinning overlying the anterior aspect of the medial femoral condyle. 10. Trace posterior Begum's cyst. PHYSICAL EXAMINATION: The patient indeed had a significant area of blanching erythema at the anterio r aspect of the knee measuring approximately 6 cm x 7 cm with a central area of fluctuance measuring approximately 2 cm x 2 cm with no visible area of drainage and there was a scab/john from the bug bit e that was visible at the center of the area of fluctuance. The patient was able to obtain full rang e of motion at all of his joints with a painless arc of motion at the knee from 0-110 degrees with pa in at high flexion past this point, but he was able to obtain 130 degrees flexion. He had full motor strength there was neurovascularly intact distally. SUMMARY: I reviewed the MRI findings and the imaging with the patient at length, as well as his phys ical examination and his diagnosis. He was indicated for open prepatellar bursectomy and irrigation and debridement of the prepatellar bursa abscess with acquisition of cultures and biopsy of tissue an d placement of packing. The risks, benefits, and alternatives of procedure were discussed at length with the patient with the risks including, but not limited secondary infection, neurovascular damage, need for further surgery, wound breakdown, development of chronic pain and disability, development o f stiffness, inability to return to pre-injury level of activity and occupation, need for repeat surg williams, including repeat I and D, development of chronic pain and disability, development of blood clots including DVT and PE, anesthesia reactions including , perioperative cardiopulmonary complicati ons. After answering all of his questions, the patient stated that he understood the risks and wishe d to proceed with surgery. He was made n.p.o. after midnight and placed on the add-on schedule for t he next morning. He was evaluated by Dr. Dedrick Vee, who is the primary care physician who he was a dmitted to on the medical service and was deemed to be low risk for surgery. His white count was 16 and ESR was 45 on admission. Repeat evaluation on the day of surgery, 12/26/2016, showed that the collection had significantly ex panded and had, not just an area of visible fluctuance, but the collection had expanded into the derm al area with desquamation of overlying tissue and a clear anterior collection of a significant amount of purulence that was directly visible as a large blister at the anterior aspect of the knee. This area measured approximately 3 cm x 4 cm and also was centralized around the bug bite. PROCEDURE IN DETAIL: The patient was identified in the preoperative holding area and the right knee was marked for surgery. Once again, as described above, the risks, benefits, and alternatives of the procedure were discussed at length with the patient. Informed consent was obtained with the help of a Palestinian-speaking card hanger, who was also our witness. After a brief discussion with anesthesia s betsy, he was taken to the operating room and placed on a well-padded operating room table with all sandro ny prominences and superficial neurovascular structures well padded. Perioperative IV antibiotics we re held until the cultures were obtained. He was due for his dose of vancomycin, which was the recom mendation by infectious disease consultation. The patient had been receiving IV antibiotics since ad mission. The patient was admitted in the evening of 12/24/2016. Orthopedic consultation was not shira ervin until the afternoon of 12/25/2016 and they had not stopped giving the IV antibiotics. A final timeout was done with the surgeon, anesthesia staff, and OR staff, all in agreement with the patient, procedure being done, and extremity being operated on. General anesthesia in the form of LM A anesthesia was administered without difficulty or complication. The right lower extremity was prep ped and draped in standard sterile fashion. A tourniquet was placed high on the right thigh, but nev er inflated. The central collection at the anterior aspect of the knee was incised and approximately 5 mL of purulent fluid was expressed immediately and collected for culture specimen. An incision wa s then made through the underlying dermal area, which opened into a large abscess in the prepatellar bursa that decompressed another 5 mL of purulent fluid and blood mixture. Knee incision in total [facility] was approximately 3 cm. Incision made through skin down to subcutaneous tissue while maintaining good hemostasis down to the level of the underlying anterior knee fascia, patella and patellar tendo n. With the use of power irrigation, 3000 mL of normal saline were used to copiously irrigate the pr epatellar bursa and the wound after the cultures and abscess tissue biopsy tissue specimens were kris ynes with a rongeur. Once the wound was copiously irrigated, a rongeur and Bovie were used to debride all nonviable and infected bursal tissue and an open complete bursectomy of the prepatellar bursa wa s carried out as the abscess seemed to involve almost the entire prepatellar bursa. Once this was ca rried out to satisfaction and only healthy, normal-looking tissue remained, another 3000 mL of normal saline were used to irrigate the wound and the previous abscess area and prepatellar bursa area copi ously. Once this was carried out to satisfaction and good hemostasis was achieved, 2.0 nylon suture were used to reapproximate the superior and inferior ends of the incision with the central aspect of the incision left open. Quarter inch iodoform packing was then placed into the opening and the incis ion to fill the cavity left behind from the abscess. Sterile dressings were then applied followed by a layer of sterile cast padding from the toes up to the superior thigh, followed by a layer of compr essive Dewayne wrap from the toes up to the superior thigh and placement in a knee immobilizer. The refuigo ent was then extubated and transferred to PACU in stable condition and tolerated the procedure well. Perioperative IV antibiotics were administered after the cultures were obtained as the vancomycin do se that was due and the 2 grams of Ancef. The cultures that were obtained from the almost total 10 m L of and blood mixture were sent as 3 specimens of STAT Gram stain and aerobic cultures, one an aerobic culture specimen, one specimen with fungus and AFB to microbiology, and one tissue specimen s ent to pathology. The patient was then extubated and transferred to PACU in stable condition and tolerated the procedur e well. DISPOSITION: The patient will remain as an inpatient and we will follow up on final sensitivities of cultures and infectious disease consult. I will monitor his progress closely clinically. The plan is for the packing to be removed at the end of the day tomorrow either by myself or the surgical phys ician surgical first assistant. He will be started on DVT prophylaxis in the form of 40 mg once daily Lovenox start ing postoperative day #1. He will receive adequate pain control as an inpatient. He will be weightb earing as tolerated with a full activity. Once he regains his strength, he can ambulate without the knee immobilizer. He will work with physical therapy as well. We will monitor his progress closely as an inpatient. Brian Fountain MD cc: [id number] TT: 12/27/2016 00:13:04 aletha
[2016-12-27] MEDS: Lactated Ringer's 1,000 ML IV SCH (02:40)
[2016-12-27] MEDS: Piperacillin/Tazobact 3.375 GM in Sodium Chloride 0.9% 100 ML IVPB SCH ×2 (03:58→10:33)
[2016-12-27 11:12] LABS: BASO % 0.3 % (0.0-2.0); EOS # 0.1 K/uL (0.0-0.7); EOS % 0.7 % (0.0-4.0); HEMATOCRIT 40.4 % (35.0-51.0); LYMPH # 1.8 K/uL (1.0-4.3); LYMPH % 20.5 % (20.0-40.0); MEAN CORPUSCULAR HEMOGLOBIN 29.8 pg (27.0-31.0); MEAN CORPUSCULAR HGB CONC 33.9 g/dL (33.0-37.0); MONO # 0.9 K/uL (0.0-0.8); MONO % 9.8 % (0.0-10.0); NEUT % 68.7 % (50.0-75.0); RED CELL DISTRIBUTION WIDTH 12.7 % (11.5-14.5); WHITE BLOOD COUNT 8.8 K/uL (4.8-10.8)
--- NOTE | 2016-12-27 14:55 | CP.PCM.PN ---
Subjective - Date & Time of Evaluation Date of Evaluation: 12/27/16 Time of Evaluation: 12:00 - Subjective Subjective: ID Note- Pt. was seen and examined today. Pt. is POD #1 I and D of prepatellar bursitis. pt. has packing in place as per ortho and had purulent fluid draines yesterday. Pt. denies any fever or chills and states feels better overall. Objective - Vital Signs/Intake and Output Vital Signs (last 24 hours): Temp Pulse Resp BP Pulse Ox 98.3 F 81 17 103/65 97 12/27/16 07:30 12/27/16 07:30 12/27/16 07:30 12/27/16 07:30 12/27/16 07:30 - Medications Medications: Current Medications Acetaminophen (Tylenol 325mg Tab) 650 mg PO Q6 PRN PRN Reason: Fever >100.4 F Hydromorphone HCl (Dilaudid) 0.5 mg IVP Q15M PRN PRN Reason: Pain, moderate (4-7) Stop: 12/27/16 16:20 Last Admin: 12/26/16 16:50 Dose: 0.5 mg Vancomycin HCl 1 gm/ Sodium (Chloride) 250 mls @ 166.667 mls/hr IVPB Q12 SHO Last Admin: 12/27/16 09:46 Dose: 166.667 mls/hr Lactated Ringer's (Lactated Ringer's) 1,000 mls @ 75 mls/hr IV .[id number] [facility], 1928–1983 Last Admin: 12/27/16 02:40 Dose: 75 mls/hr Ibuprofen (Motrin Tab) 600 mg PO Q6 PRN PRN Reason: Pain, moderate (4-7) Last Admin: 12/25/16 15:40 Dose: 600 mg Oxycodone/Acetaminophen (Percocet 5/325 Mg Tab) 1 tab PO Q6 PRN PRN Reason: Pain, severe (8-10) Stop: 12/27/16 23:27 Last Admin: 12/25/16 02:41 Dose: 1 tab - Labs Labs: - Additional Findings Additional findings: - Constitutional Appears: No Acute Distress - Head Exam Head Exam: ATRAUMATIC - Eye Exam Eye Exam: EOMI, PERRL - ENT Exam ENT Exam: Normal Oropharynx - Neck Exam Neck exam: Positive for: Full Rom - Respiratory Exam Respiratory Exam: Clear to Auscultation Bilateral, NORMAL BREATHING PATTERN - Cardiovascular Exam Cardiovascular Exam: RRR, +S1, +S2 - GI/Abdominal Exam GI & Abdominal Exam: Normal Bowel Sounds, Soft Additional comments: NT, ND - Extremities Exam Additional comments: the right knee and leg is wrapped in post surgical dressing no drain - Neurological Exam Neurological exam: Alert, Oriented x 3 Laboratory Results - last 72 hr 12/24/16 12/24/16 12/24/16 16:50 16:50 16:50 WBC 16.0 H RBC 4.88 Hgb 14.8 Hct 42.9 MCV 88.1 MCH 30.4 MCHC 34.5 RDW 13.2 Plt Count 328 MPV 7.9 Neut % (Auto) 73.1 Lymph % (Auto) 16.0 L Hart % (Auto) 10.3 H Eos % (Auto) 0.4 Baso % (Auto) 0.2 Neut # 11.7 H Lymph # 2.6 Hart # 1.7 H Eos # 0.1 Baso # 0.0 ESR 45 H PT INR APTT Sodium 141 Potassium 3.9 Chloride 102 Carbon Dioxide 27 Anion Gap 16 BUN 13 Creatinine 0.9 Est GFR ( Amer) > 60 Est GFR (Non-Af Amer) > 60 Random Glucose 92 Lactic Acid 1.7 Calcium 9.5 Total Bilirubin 0.6 AST 38 ALT 54 Alkaline Phosphatase 75 C-React Prot High Sens Total Protein 8.6 H Albumin 4.7 Globulin 3.9 Albumin/Globulin Ratio 1.2 12/24/16 12/25/16 12/26/16 20:45 11:15 06:25 WBC 14.9 H 13.8 H RBC 4.92 4.81 Hgb 14.6 14.2 Hct 43.6 42.6 MCV 88.6 88.5 MCH 29.7 29.5 MCHC 33.5 33.3 RDW 12.8 13.2 Plt Count 330 346 MPV 7.6 Neut % (Auto) 68.8 Lymph % (Auto) 17.1 L Hart % (Auto) 13.3 H Eos % (Auto) 0.4 Baso % (Auto) 0.4 Neut # 10.2 H Lymph # 2.5 Hart # 2.0 H Eos # 0.1 Baso # 0.1 ESR 56 H PT INR APTT Sodium Potassium Chloride Carbon Dioxide Anion Gap BUN Creatinine Est GFR ( Amer) Est GFR (Non-Af Amer) Random Glucose Lactic Acid Calcium Total Bilirubin AST ALT Alkaline Phosphatase C-React Prot High Sens > 15.00 H Total Protein Albumin Globulin Albumin/Globulin Ratio 12/26/16 12/26/16 12/27/16 06:25 10:00 11:00 WBC 8.8 RBC 4.59 Hgb 13.7 Hct 40.4 MCV 88.0 MCH 29.8 MCHC 33.9 RDW 12.7 Plt Count 341 MPV 7.0 L Neut % (Auto) 68.7 Lymph % (Auto) 20.5 Hart % (Auto) 9.8 Eos % (Auto) 0.7 Baso % (Auto) 0.3 Neut # 6.0 Lymph # 1.8 Hart # 0.9 H Eos # 0.1 Baso # 0.0 ESR PT 11.1 INR 1.07 APTT 30.4 Sodium 140 Potassium 4.3 Chloride 101 Carbon Dioxide 29 Anion Gap 15 BUN 10 Creatinine 1.0 Est GFR ( Amer) > 60 Est GFR (Non-Af Amer) > 60 Random Glucose 96 Lactic Acid Calcium 9.3 Total Bilirubin 0.5 AST 38 ALT 53 Alkaline Phosphatase 68 C-React Prot High Sens Total Protein 7.5 Albumin 4.1 Globulin 3.4 Albumin/Globulin Ratio 1.2 Microbiology 12/25/16 14:45 Blood-Venous Blood Culture - Preliminary NO GROWTH AFTER 48 HOURS 12/24/16 16:50 Blood Blood Culture - Preliminary NO GROWTH AFTER 48 HOURS 12/24/16 17:05 Blood Blood Culture - Preliminary NO GROWTH AFTER 48 HOURS 12/25/16 15:30 Blood-Venous Blood Culture - Preliminary NO GROWTH AFTER 24 HOURS Accession No. : [id number] Patient Name / ID : CHAD YOST A / [id number] Exam Date : 12/25/2016 09:07:59 ( Approved ) Study Comment : Sex / Age : M / 41Y Creator : Jaime Castro MD Dictator : Jaime Castro MD Turbine Technician : Riding [employer]ks Custodian : Jaime Castro MD Approver2 : Report Date : 12/25/2016 13:01:45 My Comment : MRI right knee History: Cellulitis. Evaluate for septic arthritis. Comparison: None available. Technique: Multi-echo multiplanar sequences were performed through the right knee without and with the use of intravenous contrast. Findings: Prominent reticulation and edema with fluid noted within the prepatellar soft tissues consistent with a prominent prepatellar bursitis. Within the soft tissues anterior to the patellar tendon there is a peripherally enhancing collection measuring 2.1 x 1.6 x 2.8 centimeters which may represent a prepatellar abscess collection. No signal abnormality within the adjacent bony patella to suggest acute osteomyelitis. No significant knee joint effusion to suggest a septic arthritis. Thinning and attenuation with fraying of the visualized anterior cruciate ligament suggestive for a moderate grade sprain with some interstitial delamination. Moderate grade sprain of the posterior cruciate ligament. Limited evaluation of the menisci given lack of PD fat sat and STIR sequences. Globular increased signal seen within the posterior horn of the medial meniscus extending to the articular surface suggestive for intrasubstance degeneration and or partial tear. Linear grade 1 intrasubstance degeneration and or partial tearing in the anterior root and horn of the lateral meniscus. Circumferential reticulation and edema within the soft tissues. Medial collateral ligament is preserved. Lateral collateral ligament complex structures are preserved. Quadriceps tendon is preserved. Patellar tendon is preserved. Focal cartilage thinning and loss overlying the patellar apex and lateral aspect of the medial patellar facet. Moderate grade strains of the medial and lateral patellar retinaculum. Mild cartilage thinning overlying the anterior aspect of the medial femoral condyle. No significant suprapatellar joint effusion. Trace posterior Begum's cyst. Impression: 1. Prominent reticulation and edema with fluid noted within the prepatellar soft tissues consistent with a prominent prepatellar bursitis. Within the soft tissues anterior to the patellar tendon there is a peripherally enhancing collection measuring 2.1 x 1.6 x 2.8 centimeters which may represent a prepatellar abscess collection. No signal abnormality within the adjacent bony patella to suggest acute osteomyelitis. No significant knee joint effusion to suggest a septic arthritis. 2. Thinning and attenuation with fraying of the visualized anterior cruciate ligament suggestive for a moderate grade sprain with some interstitial delamination. 3. Moderate grade sprain of the posterior cruciate ligament. 4. Limited evaluation of the menisci given lack of PD fat sat and STIR sequences. Globular increased signal seen within the posterior horn of the medial meniscus extending to the articular surface suggestive for intrasubstance degeneration and or partial tear. 5. Linear grade 1 intrasubstance degeneration and or partial tearing in the anterior root and horn of the lateral meniscus. 6. Circumferential reticulation and edema within the soft tissues. 7. Focal cartilage thinning and loss overlying the patellar apex and lateral aspect of the medial patellar facet. 8. Moderate grade strains of the medial and lateral patellar retinaculum. 9. Mild cartilage thinning overlying the anterior aspect of the medial femoral condyle. 10. Trace posterior Begum's cyst. Assessment and Plan (1) Cellulitis of knee Status: Acute (2) Abscess of bursa of right knee Status: Acute - Assessment and Plan (Free Text) Assessment: A/P- 41 year old male with no PMH presented with right knee erythema and swelling and pain. found to have prepatellar bursitis and abscess. s/p I and D pod #1 afebrile today. leukocytosis has resolved. blood cx- neg x 4 joint fluid cx- pending MRI report- NO Om as per report. plan- Advise to continue with IV vancomycin pending further results.day #3. Keep trough <15 but above 10. f/u wound cx results. packing changes as per ortho team. all above d/w patient and with PURSE SEINING HAND Etelvina at length.
[2016-12-28] MEDS: Lactated Ringer's 1,000 ML IV SCH (05:54)
[2016-12-28 07:31] LABS: HEMATOCRIT 41.6 % (35.0-51.0); MEAN CELL VOLUME 87.9 fl (80.0-94.0); MEAN CORPUSCULAR HEMOGLOBIN 29.9 pg (27.0-31.0); WHITE BLOOD COUNT 9.8 K/uL (4.8-10.8)
[2016-12-28 07:49] LABS: BLOOD UREA NITROGEN 12 mg/dl (9-20); CALCIUM 9.3 mg/dL (8.4-10.2); CARBON DIOXIDE 27 mmol/L (22-30); CHLORIDE 104 mmol/L (98-107); GFR AFRICAN-AMERICAN > 60; GLUCOSE,RANDOM 96 mg/dL (75-110); POTASSIUM 3.9 MMOL/L (3.6-5.0); SODIUM 141 mmol/l (132-148)
--- NOTE | 2016-12-28 09:06 | CP.PCM.PN ---
<Andressa Mcintyre - Last Filed: 12/28/16 09:03> Subjective - Date & Time of Evaluation Date of Evaluation: 12/28/16 Time of Evaluation: 09:03 - Subjective Subjective: evaluated with attending. no overnight events. denies pain or drainage of right knee. denies chest pain, SOB, abd pain. Objective - Vital Signs/Intake and Output Vital Signs (last 24 hours): Temp Pulse Resp BP Pulse Ox 98.2 F 102 H 18 125/78 98 12/28/16 08:28 12/28/16 08:28 12/28/16 08:28 12/28/16 08:28 12/28/16 08:28 - Medications Medications: Current Medications Acetaminophen (Tylenol 325mg Tab) 650 mg PO Q6 PRN PRN Reason: Fever >100.4 F Enoxaparin Sodium (Lovenox) 40 mg SC DAILY [facility] PRN Reason: Protocol Vancomycin HCl 1 gm/ Sodium (Chloride) 250 mls @ 166.667 mls/hr IVPB Q12 [facility] Last Admin: 12/27/16 20:44 Dose: 166.667 mls/hr Lactated Ringer's (Lactated Ringer's) 1,000 mls @ 75 mls/hr IV .[id number] [facility] Last Admin: 12/28/16 05:54 Dose: Not Given Ibuprofen (Motrin Tab) 600 mg PO Q6 PRN PRN Reason: Pain, moderate (4-7) Last Admin: 12/25/16 15:40 Dose: 600 mg Zolpidem Tartrate (Ambien) 5 mg PO HS PRN PRN Reason: Sleep Last Admin: 12/27/16 23:22 Dose: 5 mg - Labs Labs: 12/28/16 07:05 12/28/16 07:05 PT 11.1 SECONDS (9.6-11.2) 12/26/16 10:00 INR 1.07 (0.92-1.08) 12/26/16 10:00 APTT 30.4 SECONDS (23.3-32.5) 12/26/16 10:00 - Constitutional Appears: Non-toxic, No Acute Distress - Head Exam Head Exam: NORMAL INSPECTION - Eye Exam Eye Exam: Normal appearance - ENT Exam ENT Exam: Mucous Membranes Moist - Neck Exam Neck Exam: Normal Inspection - Respiratory Exam Respiratory Exam: Clear to Ausculation Bilateral - Cardiovascular Exam Cardiovascular Exam: REGULAR RHYTHM - GI/Abdominal Exam GI & Abdominal Exam: Soft - Extremities Exam Additional comments: right knee brace/immobilizer in place - Back Exam Back Exam: NORMAL INSPECTION - Neurological Exam Neurological Exam: Alert, Oriented x3 - Skin Skin Exam: Dry, Warm Assessment and Plan - Assessment and Plan (Free Text) Assessment: 41yo M with no PMHx admitted for right knee cellulitis. s/p POD#2 for right knee cellulitis -blood cx NGTD -ortho on board, appreciate input -ID on board, appreciate input -vanco -MRI: no osteo, prepatellar bursitis/cellulitis DVT ppx -SCDs -restart lovenox <Dedrick Vee K - Last Filed: 12/28/16 18:02> Objective - Vital Signs/Intake and Output Vital Signs (last 24 hours): Temp Pulse Resp BP Pulse Ox 98.8 F 79 20 136/75 97 12/28/16 16:21 12/28/16 16:21 12/28/16 16:21 12/28/16 16:21 12/28/16 16:21 - Medications Medications: Current Medications Acetaminophen (Tylenol 325mg Tab) 650 mg PO Q6 PRN PRN Reason: Fever >100.4 F Enoxaparin Sodium (Lovenox) 40 mg SC DAILY [facility] PRN Reason: Protocol Last Admin: 12/28/16 12:33 Dose: 40 mg Vancomycin HCl 1 gm/ Sodium (Chloride) 250 mls @ 166.667 mls/hr IVPB Q12 [facility] Last Admin: 12/28/16 09:27 Dose: 166.667 mls/hr Lactated Ringer's (Lactated Ringer's) 1,000 mls @ 75 mls/hr IV .[id number] [facility] Last Admin: 12/28/16 05:54 Dose: Not Given Ibuprofen (Motrin Tab) 600 mg PO Q6 PRN PRN Reason: Pain, moderate (4-7) Last Admin: 12/25/16 15:40 Dose: 600 mg Zolpidem Tartrate (Ambien) 5 mg PO HS PRN PRN Reason: Sleep Last Admin: 12/27/16 23:22 Dose: 5 mg - Labs Labs: 12/28/16 07:12/28/16 07:05 PT 11.1 SECONDS (9.6-11.2) 12/26/16 10:00 INR 1.07 (0.92-1.08) 12/26/16 10:00 APTT 30.4 SECONDS (23.3-32.5) 12/26/16 10:00 Assessment and Plan - Assessment and Plan (Free Text) Assessment: Patient seen and examined with residents in rounds. Case, condition, investigative work up and plan discussed in detail. Agree with residents progress note. Plan: As ordered. (Dedrick Vee MD)
--- NOTE | 2016-12-28 11:42 | CP.PCM.PN ---
Subjective - Date & Time of Evaluation Date of Evaluation: 12/28/16 Time of Evaluation: 11:42 - Subjective Subjective: ID Note- Pt. seen and examined today. Pt. denies any fever or chills. pt is POD #2 for I and D of prepatellar septic bursitis. Objective - Vital Signs/Intake and Output Vital Signs (last 24 hours): Temp Pulse Resp BP Pulse Ox 98.2 F 102 H 18 125/78 98 12/28/16 08:28 12/28/16 08:28 12/28/16 08:28 12/28/16 08:28 12/28/16 08:28 - Medications Medications: Current Medications Acetaminophen (Tylenol 325mg Tab) 650 mg PO Q6 PRN PRN Reason: Fever >100.4 F Enoxaparin Sodium (Lovenox) 40 mg SC DAILY [facility] PRN Reason: Protocol Vancomycin HCl 1 gm/ Sodium (Chloride) 250 mls @ 166.667 mls/hr IVPB Q12 [facility] Last Admin: 12/28/16 09:27 Dose: 166.667 mls/hr Lactated Ringer's (Lactated Ringer's) 1,000 mls @ 75 mls/hr IV .[id number] [facility] Last Admin: 12/28/16 05:54 Dose: Not Given Ibuprofen (Motrin Tab) 600 mg PO Q6 PRN PRN Reason: Pain, moderate (4-7) Last Admin: 12/25/16 15:40 Dose: 600 mg Zolpidem Tartrate (Ambien) 5 mg PO HS PRN PRN Reason: Sleep Last Admin: 12/27/16 23:22 Dose: 5 mg - Labs Labs: - Additional Findings Additional findings: - Constitutional Appears: No Acute Distress - Head Exam Head Exam: ATRAUMATIC - Eye Exam Eye Exam: EOMI, PERRL - ENT Exam ENT Exam: Normal Oropharynx - Neck Exam Neck exam: Positive for: Full Rom - Respiratory Exam Respiratory Exam: Clear to Auscultation Bilateral, NORMAL BREATHING PATTERN - Cardiovascular Exam Cardiovascular Exam: RRR, +S1, +S2 - GI/Abdominal Exam GI & Abdominal Exam: Normal Bowel Sounds, Soft Additional comments: NT, ND - Extremities Exam Additional comments: the right knee and leg is wrapped in post surgical dressing , small amount of fluid seen on the dressing with malodor ( packing has not been changed since surgery as per patient) - Neurological Exam Neurological exam: Alert, Oriented x 3 Laboratory Results - last 72 hr 12/26/16 12/26/16 12/26/16 06:25 06:25 10:00 WBC 13.8 H RBC 4.81 Hgb 14.2 Hct 42.6 MCV 88.5 MCH 29.5 MCHC 33.3 RDW 13.2 Plt Count 346 MPV Neut % (Auto) Lymph % (Auto) Faulkner % (Auto) Eos % (Auto) Baso % (Auto) Neut # Lymph # Faulkner # Eos # Baso # PT 11.1 INR 1.07 APTT 30.4 Sodium 140 Potassium 4.3 Chloride 101 Carbon Dioxide 29 Anion Gap 15 BUN 10 Creatinine 1.0 Est GFR ( Amer) > 60 Est GFR (Non-Af Amer) > 60 Random Glucose 96 Calcium 9.3 Total Bilirubin 0.5 AST 38 ALT 53 Alkaline Phosphatase 68 Total Protein 7.5 Albumin 4.1 Globulin 3.4 Albumin/Globulin Ratio 1.2 Vancomycin Trough 12/27/16 12/28/16 12/28/16 11:00 07:05 07:05 WBC 8.8 9.8 RBC 4.59 4.73 Hgb 13.7 14.1 Hct 40.4 41.6 MCV 88.0 87.9 MCH 29.8 29.9 MCHC 33.9 34.0 RDW 12.7 13.0 Plt Count 341 387 MPV 7.0 L Neut % (Auto) 68.7 Lymph % (Auto) 20.5 Faulkner % (Auto) 9.8 Eos % (Auto) 0.7 Baso % (Auto) 0.3 Neut # 6.0 Lymph # 1.8 Faulkner # 0.9 H Eos # 0.1 Baso # 0.0 PT INR APTT Sodium Potassium Chloride Carbon Dioxide Anion Gap BUN Creatinine Est GFR ( Amer) Est GFR (Non-Af Amer) Random Glucose Calcium Total Bilirubin AST ALT Alkaline Phosphatase Total Protein Albumin Globulin Albumin/Globulin Ratio Vancomycin Trough 8.4 12/28/16 07:05 WBC RBC Hgb Hct MCV MCH MCHC RDW Plt Count MPV Neut % (Auto) Lymph % (Auto) Faulkner % (Auto) Eos % (Auto) Baso % (Auto) Neut # Lymph # Faulkner # Eos # Baso # PT INR APTT Sodium 141 Potassium 3.9 Chloride 104 Carbon Dioxide 27 Anion Gap 15 BUN 12 Creatinine 1.0 Est GFR ( Amer) > 60 Est GFR (Non-Af Amer) > 60 Random Glucose 96 Calcium 9.3 Total Bilirubin AST ALT Alkaline Phosphatase Total Protein Albumin Globulin Albumin/Globulin Ratio Vancomycin Trough Microbiology 12/25/16 15:30 Blood-Venous Blood Culture - Preliminary NO GROWTH AFTER 3 DAYS 12/25/16 14:45 Blood-Venous Blood Culture - Preliminary NO GROWTH AFTER 3 DAYS 12/27/16 10:53 Other: Please Indicate Mycobacterial Culture - Preliminary 12/27/16 10:53 Knee Right Fungal Culture - Preliminary 12/26/16 10:53 Knee - Right Gram Stain - Final 12/26/16 10:53 Knee - Right Wound Culture - Preliminary Staphylococcus Aureus 12/27/16 10:53 Knee - Right Gram Stain - Final 12/27/16 10:53 Knee - Right Wound Culture - Preliminary Staphylococcus Aureus 12/27/16 10:53 Knee - Right Gram Stain - Final 12/27/16 10:53 Knee - Right Wound Culture - Preliminary Staphylococcus Aureus 12/27/16 10:53 Knee - Right Gram Stain - Final 12/27/16 10:53 Knee - Right Wound Culture - Preliminary Staphylococcus Aureus 12/24/16 16:50 Blood Blood Culture - Preliminary NO GROWTH AFTER 3 DAYS 12/24/16 17:05 Blood Blood Culture - Preliminary NO GROWTH AFTER 3 DAYS Assessment and Plan (1) Cellulitis of knee Status: Acute (2) Abscess of bursa of right knee Status: Acute - Assessment and Plan (Free Text) Assessment: A/P- 41 year old male with no PMH presented with right knee erythema and swelling and pain. s/p I and D pod #2 for prepatelalr septic bursitis afebrile past 48 hours. leukocytosis has resolved. blood cx- neg x 4 joint fluid cx- prelim staph aureus x 4 MRI report- NO Om as per report. plan- Advise to continue with IV vancomycin for staph aureus septic bursitis. day #4. Keep trough <15 but above 10. f/u sensitivity of the joint cx. packing changes as per ortho team. all above d/w patient and with MASTER FIRE CONTROL TECHNICIAN Etelvina at length.
[2016-12-28] MEDS: Enoxaparin 40 mg Syringe SC SCH (12:33)
--- NOTE | 2016-12-28 19:02 | CARD ---
APPROVED REPORT EKG Measurement Heart [id number] <Conclusion> Normal sinus rhythm Normal ECG
--- NOTE | 2016-12-29 08:55 | PN ---
DATE: 12/29/2016 The patient seen and examined. Interim events noted. Consults noted and appreciated. The patient r emains in ____ medical floor, ambulatory, taking shower. ____ . Pain is adequately controlled. No chest pain or shortness of breath. PHYSICAL EXAMINATION: GENERAL: The patient is in no acute distress. VITAL SIGNS: Stable. HEART: S1, S2 normal, regular. LUNGS: Good bilateral air exchange. ABDOMEN: Soft, nontender. EXTREMITIES: The patient is status post surgery. No sign of acute complication. No edema, no calf swelling, no tenderness, no acute ischemia. CENTRAL NERVOUS SYSTEM: Essentially unchanged. DIAGNOSTIC DATA: Available diagnostic data reviewed. The patient is growing MRSA. Will get infectious disease input. Overall, the patient is clinically stable. PLAN: As ordered. Dedrick Vee MD cc: [id number] TT: 12/29/2016 08:54:29 Confirmation # [id number] Dictation # [id number] melonie
[2016-12-29 09:32] LABS: HEMATOCRIT 45.3 % (35.0-51.0); MEAN CELL VOLUME 88.7 fl (80.0-94.0); MEAN CORPUSCULAR HEMOGLOBIN 29.7 pg (27.0-31.0); MEAN CORPUSCULAR HGB CONC 33.5 g/dL (33.0-37.0); RED CELL DISTRIBUTION WIDTH 12.6 % (11.5-14.5); WHITE BLOOD COUNT 10.2 K/uL (4.8-10.8)
[2016-12-29 09:42] LABS: ALB/GLOB RATIO 1.2 (1.0-2.1); ALKALINE PHOSPHATASE 78 U/L (38-126); ALT/SGPT 74 U/L (21-72); AST/SGOT 51 U/L (17-59); BILIRUBIN,TOTAL 0.4 mg/dl (0.2-1.3); BLOOD UREA NITROGEN 11 mg/dl (9-20); CALCIUM 9.6 mg/dL (8.4-10.2); CARBON DIOXIDE 26 mmol/L (22-30); CHLORIDE 103 mmol/L (98-107); GFR AFRICAN-AMERICAN > 60; GLUCOSE,RANDOM 98 mg/dL (75-110); POTASSIUM 3.7 MMOL/L (3.6-5.0); SODIUM 141 mmol/l (132-148); TOTAL PROTEIN 8.5 G/DL (6.3-8.2)
--- NOTE | 2016-12-29 11:41 | CP.PCM.PN ---
Subjective - Date & Time of Evaluation Date of Evaluation: 12/29/16 Time of Evaluation: 11:40 - Subjective Subjective: ID Note- Pt. seen and examined today. Pt. states he feels better. He states his packing was removed by the ortho team and his knee is much better. denies any fever or chills. Objective - Vital Signs/Intake and Output Vital Signs (last 24 hours): Temp Pulse Resp BP Pulse Ox 98.3 F 64 17 131/70 98 12/29/16 07:40 12/29/16 07:40 12/29/16 07:40 12/29/16 07:40 12/29/16 07:40 - Medications Medications: Current Medications Acetaminophen (Tylenol 325mg Tab) 650 mg PO Q6 PRN PRN Reason: Fever >100.4 F Enoxaparin Sodium (Lovenox) 40 mg SC DAILY [facility] PRN Reason: Protocol Last Admin: 12/28/16 12:33 Dose: 40 mg Vancomycin HCl 1 gm/ Sodium (Chloride) 250 mls @ 166.667 mls/hr IVPB Q12 [facility] Last Admin: 12/28/16 21:19 Dose: 166.667 mls/hr Lactated Ringer's (Lactated Ringer's) 1,000 mls @ 75 mls/hr IV .[id number] [facility] Last Admin: 12/28/16 05:54 Dose: Not Given Ibuprofen (Motrin Tab) 600 mg PO Q6 PRN PRN Reason: Pain, moderate (4-7) Last Admin: 12/25/16 15:40 Dose: 600 mg Zolpidem Tartrate (Ambien) 5 mg PO HS PRN PRN Reason: Sleep Last Admin: 12/28/16 23:22 Dose: 5 mg - Labs Labs: - Additional Findings Additional findings: - Constitutional Appears: No Acute Distress - Head Exam Head Exam: ATRAUMATIC - Eye Exam Eye Exam: EOMI, PERRL - ENT Exam ENT Exam: Normal Oropharynx - Neck Exam Neck exam: Positive for: Full Rom - Respiratory Exam Respiratory Exam: Clear to Auscultation Bilateral, NORMAL BREATHING PATTERN - Cardiovascular Exam Cardiovascular Exam: RRR, +S1, +S2 - GI/Abdominal Exam GI & Abdominal Exam: Normal Bowel Sounds, Soft Additional comments: NT, ND - Extremities Exam Additional comments: the right knee much less edma , almost no erythema, no discharge, minimal malodor only - Neurological Exam Neurological exam: Alert, Oriented x 3 Laboratory Results - last 72 hr 12/27/16 12/28/16 12/28/16 11:00 07:05 07:05 WBC 8.8 9.8 RBC 4.59 4.73 Hgb 13.7 14.1 Hct 40.4 41.6 MCV 88.0 87.9 MCH 29.8 29.9 MCHC 33.9 34.0 RDW 12.7 13.0 Plt Count 341 387 MPV 7.0 L Neut % (Auto) 68.7 Lymph % (Auto) 20.5 Casey % (Auto) 9.8 Eos % (Auto) 0.7 Baso % (Auto) 0.3 Neut # 6.0 Lymph # 1.8 Casey # 0.9 H Eos # 0.1 Baso # 0.0 Sodium Potassium Chloride Carbon Dioxide Anion Gap BUN Creatinine Est GFR ( Amer) Est GFR (Non-Af Amer) Random Glucose Calcium Total Bilirubin AST ALT Alkaline Phosphatase Total Protein Albumin Globulin Albumin/Globulin Ratio Vancomycin Trough 8.4 12/28/16 12/29/16 12/29/16 07:05 08:00 08:00 WBC 10.2 RBC 5.11 Hgb 15.2 Hct 45.3 MCV 88.7 MCH 29.7 MCHC 33.5 RDW 12.6 Plt Count 466 H MPV Neut % (Auto) Lymph % (Auto) Casey % (Auto) Eos % (Auto) Baso % (Auto) Neut # Lymph # Casey # Eos # Baso # Sodium 141 141 Potassium 3.9 3.7 Chloride 104 103 Carbon Dioxide 27 26 Anion Gap 15 16 BUN 12 11 Creatinine 1.0 0.9 Est GFR ( Amer) > 60 > 60 Est GFR (Non-Af Amer) > 60 > 60 Random Glucose 96 98 Calcium 9.3 9.6 Total Bilirubin 0.4 AST 51 ALT 74 H D Alkaline Phosphatase 78 Total Protein 8.5 H Albumin 4.6 Globulin 3.9 Albumin/Globulin Ratio 1.2 Vancomycin Trough Microbiology 12/26/16 10:53 Knee - Right Gram Stain - Final 12/26/16 10:53 Knee - Right Anaerobic Culture - Final NO ANAEROBES ISOLATED. 12/26/16 10:53 Knee - Right Wound Culture - Final Methicillin Resistant S Aureus 12/27/16 10:53 Knee - Right Gram Stain - Final 12/27/16 10:53 Knee - Right Wound Culture - Final Methicillin Resistant S Aureus 12/27/16 10:53 Knee - Right Gram Stain - Final 12/27/16 10:53 Knee - Right Wound Culture - Final Methicillin Resistant S Aureus 12/27/16 10:53 Knee - Right Gram Stain - Final 12/27/16 10:53 Knee - Right Wound Culture - Final Methicillin Resistant S Aureus 12/24/16 16:50 Blood Blood Culture - Preliminary NO GROWTH AFTER 4 DAYS 12/24/16 17:05 Blood Blood Culture - Preliminary NO GROWTH AFTER 4 DAYS 12/25/16 15:30 Blood-Venous Blood Culture - Preliminary NO GROWTH AFTER 3 DAYS 12/25/16 14:45 Blood-Venous Blood Culture - Preliminary NO GROWTH AFTER 3 DAYS 12/27/16 10:53 Other: Please Indicate Mycobacterial Culture - Preliminary 12/27/16 10:53 Knee Right Fungal Culture - Preliminary Assessment and Plan (1) Cellulitis of knee Status: Acute (2) Abscess of bursa of right knee Status: Acute - Assessment and Plan (Free Text) Assessment: A/P- 41 year old male with no PMH presented with right knee erythema and swelling and pain. s/p I and D pod #3 for prepatellar septic bursitis afebrile past 3 days.. leukocytosis has resolved. blood cx- neg x 4 joint fluid cx- MRSA x 4 MRI report- NO Om as per report. plan- Advise to continue with IV vancomycin for MRSA septic bursitis. day #5. Keep trough <15 but above 10. will most likely need 2 weeks of IV antibiotics and after that another 2 weeks of oral antibiotics. All above d/w patient at length and he verbalizes full understanding of all above.
[2016-12-29] MEDS: Enoxaparin 40 mg Syringe SC SCH (12:28)
[2016-12-30 08:10] LABS: MEAN CELL VOLUME 87.6 fl (80.0-94.0); MEAN CORPUSCULAR HEMOGLOBIN 29.2 pg (27.0-31.0); MEAN CORPUSCULAR HGB CONC 33.3 g/dL (33.0-37.0); RED CELL DISTRIBUTION WIDTH 12.7 % (11.5-14.5); WHITE BLOOD COUNT 11.6 K/uL (4.8-10.8)
[2016-12-30 08:26] LABS: ALB/GLOB RATIO 1.2 (1.0-2.1); ALKALINE PHOSPHATASE 68 U/L (38-126); ALT/SGPT 78 U/L (21-72); AST/SGOT 41 U/L (17-59); BILIRUBIN,TOTAL 0.3 mg/dl (0.2-1.3); BLOOD UREA NITROGEN 13 mg/dl (9-20); CALCIUM 9.4 mg/dL (8.4-10.2); CARBON DIOXIDE 28 mmol/L (22-30); GFR AFRICAN-AMERICAN > 60; GLUCOSE,RANDOM 92 mg/dL (75-110); POTASSIUM 3.8 MMOL/L (3.6-5.0); SODIUM 140 mmol/l (132-148); TOTAL PROTEIN 8.1 G/DL (6.3-8.2)
[2016-12-30 08:46] LABS: CHLORIDE 103 mmol/L (98-107)
[2016-12-30] MEDS: Enoxaparin 40 mg Syringe SC SCH (09:42)
--- NOTE | 2016-12-30 10:03 | PN ---
DATE: 12/30/2016 The patient seen and examined. Interim events noted. Consults noted, appreciated. Infectious disea se followup and interventions noted and appreciated. The patient remains on regular medical floor wi th isolation for MRSA in the abscess. The patient feels okay. Pain is adequately controlled. No ne w complaint. No chest pain or shortness of breath. PHYSICAL EXAMINATION: GENERAL: The patient is in no acute distress. VITAL SIGNS: Stable. HEART: S1, S2 normal, regular. LUNGS: Good bilateral air exchange. ABDOMEN: Soft, nontender. GENERAL: The patient's right knee is under surgical dressing. No sign of distal complication. No e ari, no calf swelling, no tenderness, no acute ischemia. CENTRAL NERVOUS SYSTEM: Essentially unchanged. DIAGNOSTIC DATA: Available reviewed. Wound culture is positive for MRSA. Infectious disease followup and intervention noted and appreciated. The patient would require 2 week s of intravenous antibiotics, followed by 2 weeks of oral antibiotics. Case and plan discussed with patient. PLAN: As ordered. Dedrick Vee MD cc: [id number] TT: 12/30/2016 10:02:59 Confirmation # [id number] Dictation # [id number] en
[2016-12-31] MEDS: Lactated Ringer's 1,000 ML IV SCH
[2016-12-31 07:06] LABS: HEMATOCRIT 45.2 % (35.0-51.0); MEAN CELL VOLUME 88.6 fl (80.0-94.0); MEAN CORPUSCULAR HEMOGLOBIN 29.3 pg (27.0-31.0); MEAN CORPUSCULAR HGB CONC 33.1 g/dL (33.0-37.0); WHITE BLOOD COUNT 12.7 K/uL (4.8-10.8)
[2016-12-31 07:33] LABS: ALB/GLOB RATIO 1.1 (1.0-2.1); ALKALINE PHOSPHATASE 66 U/L (38-126); ALT/SGPT 86 U/L (21-72); AST/SGOT 55 U/L (17-59); BILIRUBIN,TOTAL 0.3 mg/dl (0.2-1.3); BLOOD UREA NITROGEN 14 mg/dl (9-20); CALCIUM 9.5 mg/dL (8.4-10.2); CARBON DIOXIDE 29 mmol/L (22-30); CHLORIDE 104 mmol/L (98-107); GFR AFRICAN-AMERICAN > 60; GLUCOSE,RANDOM 86 mg/dL (75-110); POTASSIUM 4.1 MMOL/L (3.6-5.0); SODIUM 142 mmol/l (132-148); TOTAL PROTEIN 7.8 G/DL (6.3-8.2)
[2016-12-31] MEDS: Enoxaparin 40 mg Syringe SC SCH (09:20)
--- NOTE | 2016-12-31 11:03 | PN ---
DATE: 12/31/2016 The patient seen and examined. Interim events noted. The patient remains in regular medical floor. The patient feels okay. Pain is adequately controlled. No chest pain, no shortness of breath. No side effect from medication. PHYSICAL EXAMINATION: GENERAL: The patient is in no acute distress. VITAL SIGNS: Stable. HEART: S1, S2 normal, regular. LUNGS: Good bilateral air exchange. ABDOMEN: Soft, nontender. EXTREMITIES: No calf swelling, no tenderness, no acute ischemia. CENTRAL NERVOUS SYSTEM: Essentially unchanged. DIAGNOSTIC DATA: Available diagnostic data reviewed. Overall, patient's general medical condition is stable and improving. PLAN: As ordered. Dedrick Vee MD cc: [id number] TT: 12/31/2016 11:02:24 Confirmation # [id number] Dictation # [id number] aletha
--- NOTE | 2016-12-31 15:50 | CP.PCM.PN ---
Subjective - Date & Time of Evaluation Date of Evaluation: 12/28/16 Time of Evaluation: 10:00 - Subjective Subjective: Patient sitting in bed comfortably. Pain is well controlled. Denies pain, fevers, chills, COULTER, N&V, CP, SOB, COULTER, numbness or tingling Objective - Vital Signs/Intake and Output Vital Signs (last 24 hours): Temp Pulse Resp BP Pulse Ox 98.4 F 73 20 126/74 97 12/31/16 08:13 12/31/16 08:13 12/31/16 08:13 12/31/16 08:13 12/31/16 08:13 - Medications Medications: Current Medications Acetaminophen (Tylenol 325mg Tab) 650 mg PO Q6 PRN PRN Reason: Fever >100.4 F Vancomycin HCl 1 gm/ Sodium (Chloride) 250 mls @ 166.667 mls/hr IVPB Q12 [facility] Last Admin: 12/31/16 09:21 Dose: 166.667 mls/hr Lactated Ringer's (Lactated Ringer's) 1,000 mls @ 75 mls/hr IV .[id number] [facility] Last Admin: 12/31/16 00:00 Dose: Not Given Ibuprofen (Motrin Tab) 600 mg PO Q6 PRN PRN Reason: Pain, moderate (4-7) Last Admin: 12/25/16 15:40 Dose: 600 mg - Labs Labs: 12/31/16 06:30 12/31/16 06:30 PT 11.1 SECONDS (9.6-11.2) 12/26/16 10:00 INR 1.07 (0.92-1.08) 12/26/16 10:00 APTT 30.4 SECONDS (23.3-32.5) 12/26/16 10:00 - Extremities Exam Additional comments: Right Lower Extremity: packing removed, surgical wound c/d/i, no drainage/ purulence, no recurrence of collection, area of blanching errythema at anterior knee much improved decreased to area [id number] Full ROM at all joints including knee w/o pain, -instability + 5/5 motor strength hip flex/ext, knee flex/ext, ankle df/pf, toes up & down sensory intact L2-S2, DPN/TN/SPN 2+ DP, BCR all toes Left Lower Extremity: - ttp, - swelling/warmth/redness, - instability, full ROM at all joints w/o pain + 5/5 motor strength hip flex/ext, knee flex/ext, ankle df/pf, toes up & down sensory intact L2-S2, DPN/TN/SPN 2+ DP, BCR all toes Assessment and Plan (1) Abscess of bursa of right knee Assessment & Plan: 41-year-old male with no significant PMH presented to the ER at [facility] on with R knee pain/redness/warmth localized to the anterior aspect of the knee progressively worsening over the past 5 days prior to admission He believes that this originated as a bug bite. DX = Right knee #1 septic prepatellar bursitis #2 abscess of prepatellar bursa #3 anterior cellulitis s/p R knee #1 I&D prepatellar abscess/septic pre-patellar bursitis #2 open pre-patellar bursectomy #3 acquisition of cultures/bx abscess #4 placement of packing 12/26/16 POD#2 PLan: R knee: -clinically much improved s/p I&D -packing removed today, wound c/d/i, no evidence of recurrence of collection, no purulence or evidence of persistent infection at surgical area, blanching erythmema much improved as well -had a long d/w nursing staff about allowing pt to shower and irrigate wound daily, no scrubbing or wound treatment, pat dry with sterile gauze, place dry sterile gauze dressing and compressive debra wrap daily -WBAT RLE, no restrictions -physical therapy= ambulation/ ROM/ strength/ stretching/ modalities, once regains quad strength then dc knee immobilizer (only as needed) -will follow -continue ID consult recs, IV abx -followup on OR cx's/path/specimen/fungus/AFB -unless medically contraindicated, consider DVT proph until pt mobile -medical care per primary team/ Dr. Vee -communicated above with covering LOGISTICS ADMINISTRATOR for Dr. Vee -please contact me with any questions, concerns, updates at [phone] Thank you for allowing me to contribute to the care of your pt. Brian Fountain MD Orthopedic Surgery Status: Acute (2) Cellulitis of knee Status: Acute
--- NOTE | 2016-12-31 18:10 | CP.PCM.PN ---
Subjective - Date & Time of Evaluation Date of Evaluation: 12/29/16 Time of Evaluation: 19:00 - Subjective Subjective: Pt lying in bed comfortably. States that pain has significantly improved. Denies fevers, chills, COULTER, N&V, CP, SOB, calf pain, numbness, tingling. Objective - Vital Signs/Intake and Output Vital Signs (last 24 hours): Temp Pulse Resp BP Pulse Ox 98.8 F 50 L 20 135/87 99 12/31/16 16:29 12/31/16 16:29 12/31/16 16:29 12/31/16 16:12/31/16 16:29 - Medications Medications: Current Medications Acetaminophen (Tylenol 325mg Tab) 650 mg PO Q6 PRN PRN Reason: Fever >100.4 F Vancomycin HCl 1 gm/ Sodium (Chloride) 250 mls @ 166.667 mls/hr IVPB Q12 SHO Last Admin: 12/31/16 09:21 Dose: 166.667 mls/hr Lactated Ringer's (Lactated Ringer's) 1,000 mls @ 75 mls/hr IV .[id number] [facility] Last Admin: 12/31/16 00:00 Dose: Not Given Ibuprofen (Motrin Tab) 600 mg PO Q6 PRN PRN Reason: Pain, moderate (4-7) Last Admin: 12/25/16 15:40 Dose: 600 mg - Labs Labs: 12/31/16 06:30 12/31/16 06:30 PT 11.1 SECONDS (9.6-11.2) 12/26/16 10:00 INR 1.07 (0.92-1.08) 12/26/16 10:00 APTT 30.4 SECONDS (23.3-32.5) 12/26/16 10:00 - Extremities Exam Additional comments: Right Lower Extremity: packing removed, surgical wound c/d/i, no drainage/ purulence, no recurrence of collection, area of blanching errythema at anterior knee much improved decreased to area [id number] Full ROM at all joints including knee w/o pain, -instability + 5/5 motor strength hip flex/ext, knee flex/ext, ankle df/pf, toes up & down sensory intact L2-S2, DPN/TN/SPN 2+ DP, BCR all toes Left Lower Extremity: - ttp, - swelling/warmth/redness, - instability, full ROM at all joints w/o pain + 5/5 motor strength hip flex/ext, knee flex/ext, ankle df/pf, toes up & down sensory intact L2-S2, DPN/TN/SPN 2+ DP, BCR all toes calves soft/nt bl Assessment and Plan (1) Abscess of bursa of right knee Assessment & Plan: 41-year-old male with no significant PMH presented to the ER at [facility] on with R knee pain/redness/warmth localized to the anterior aspect of the knee progressively worsening over the past 5 days prior to admission He believes that this originated as a bug bite. DX = Right knee #1 septic prepatellar bursitis #2 abscess of prepatellar bursa #3 anterior cellulitis s/p R knee #1 I&D prepatellar abscess/septic pre-patellar bursitis #2 open pre-patellar bursectomy #3 acquisition of cultures/bx abscess #4 placement of packing 12/26/16 POD#3 PLan: R knee: -clinically much improved s/p I&D -packing removed 12/28/16 morning, today, wound c/d/i, no evidence of recurrence of collection, no purulence or evidence of persistent infection at surgical area , blanching erythmema much improved as well, less than 1cm today -had a long d/w nursing staff again about allowing pt to shower and irrigate wound daily, no scrubbing or wound treatment, pat dry with sterile gauze, place dry sterile gauze dressing and compressive debra wrap daily, please continue and encourage -WBAT RLE, no restrictions -physical therapy= ambulation/ ROM/ strength/ stretching/ modalities, once regains quad strength then dc knee immobilizer (only as needed) -will follow -continue ID consult recs, IV abx -followup on OR cx's/path/specimen/fungus/AFB, OR cx= (+) MRSA -continue DVT proph unless medically contraindicated -medical care per primary team/ Dr. 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 Brian Fountain MD Orthopedic Surgery Status: Acute (2) Cellulitis of knee Status: Acute
[2017-01-01 07:32] LABS: HEMATOCRIT 45.2 % (35.0-51.0); MEAN CELL VOLUME 88.6 fl (80.0-94.0); MEAN CORPUSCULAR HEMOGLOBIN 29.6 pg (27.0-31.0); MEAN CORPUSCULAR HGB CONC 33.4 g/dL (33.0-37.0); RED CELL DISTRIBUTION WIDTH 13.2 % (11.5-14.5); WHITE BLOOD COUNT 12.7 K/uL (4.8-10.8)
[2017-01-01 07:49] LABS: ALB/GLOB RATIO 1.2 (1.0-2.1); ALKALINE PHOSPHATASE 64 U/L (38-126); ALT/SGPT 89 U/L (21-72); AST/SGOT 42 U/L (17-59); BILIRUBIN,TOTAL 0.3 mg/dl (0.2-1.3); BLOOD UREA NITROGEN 13 mg/dl (9-20); CALCIUM 9.4 mg/dL (8.4-10.2); CARBON DIOXIDE 28 mmol/L (22-30); CHLORIDE 103 mmol/L (98-107); GFR AFRICAN-AMERICAN > 60; GLUCOSE,RANDOM 88 mg/dL (75-110); POTASSIUM 4.3 MMOL/L (3.6-5.0); SODIUM 140 mmol/l (132-148); TOTAL PROTEIN 7.8 G/DL (6.3-8.2)
[2017-01-01] MEDS ORDERED: Enoxaparin 40 mg Syringe SC SCH (09:00)
--- NOTE | 2017-01-01 12:36 | CP.PCM.PN ---
Subjective - Date & Time of Evaluation Date of Evaluation: 01/01/17 Time of Evaluation: 12:36 - Subjective Subjective: ID Note- Pt. seen and examined today. Pt. is in good spirits. He denies any fever or chills. Objective - Vital Signs/Intake and Output Vital Signs (last 24 hours): Temp Pulse Resp BP Pulse Ox 98.6 F 71 19 137/91 H 99 01/01/17 00:38 01/01/17 00:38 01/01/17 00:38 01/01/17 00:38 01/01/17 00:38 - Medications Medications: Current Medications Acetaminophen (Tylenol 325mg Tab) 650 mg PO Q6 PRN PRN Reason: Fever >100.4 F Enoxaparin Sodium (Lovenox) 40 mg SC DAILY SHO PRN Reason: Protocol Vancomycin HCl 1 gm/ Sodium (Chloride) 250 mls @ 166.667 mls/hr IVPB Q12 SHO Last Admin: 01/01/17 08:46 Dose: 166.667 mls/hr Ibuprofen (Motrin Tab) 600 mg PO Q6 PRN PRN Reason: Pain, moderate (4-7) Last Admin: 12/25/16 15:40 Dose: 600 mg - Labs Labs: 0 - Additional Findings Additional findings: - Constitutional Appears: No Acute Distress - Head Exam Head Exam: ATRAUMATIC - Eye Exam Eye Exam: EOMI, PERRL - ENT Exam ENT Exam: Normal Oropharynx - Neck Exam Neck exam: Positive for: Full Rom - Respiratory Exam Respiratory Exam: Clear to Auscultation Bilateral, NORMAL BREATHING PATTERN - Cardiovascular Exam Cardiovascular Exam: RRR, +S1, +S2 - GI/Abdominal Exam GI & Abdominal Exam: Normal Bowel Sounds, Soft Additional comments: NT, ND - Extremities Exam Additional comments: the right knee without ny further edema , no erythema, no discharge - Neurological Exam Neurological exam: Alert, Oriented x 3 Laboratory Results - last 72 hr 12/30/16 12/30/16 12/31/16 05:30 05:30 06:30 WBC 11.6 H 12.7 H RBC 5.14 5.11 Hgb 15.0 15.0 Hct 45.0 45.2 MCV 87.6 88.6 MCH 29.2 29.3 MCHC 33.3 33.1 RDW 12.7 13.0 Plt Count 441 H 467 H Sodium 140 Potassium 3.8 Chloride 103 Carbon Dioxide 28 Anion Gap 13 BUN 13 Creatinine 1.0 Est GFR ( Amer) > 60 Est GFR (Non-Af Amer) > 60 Random Glucose 92 Calcium 9.4 Total Bilirubin 0.3 AST 41 ALT 78 H Alkaline Phosphatase 68 Total Protein 8.1 Albumin 4.3 Globulin 3.7 Albumin/Globulin Ratio 1.2 Vancomycin Trough 12/31/16 01/01/17 01/01/17 06:30 07:00 07:00 WBC 12.7 H RBC 5.11 Hgb 15.1 Hct 45.2 MCV 88.6 MCH 29.6 MCHC 33.4 RDW 13.2 Plt Count 440 H Sodium 142 140 Potassium 4.1 4.3 Chloride 104 103 Carbon Dioxide 29 28 Anion Gap 13 14 BUN 14 13 Creatinine 1.0 1.0 Est GFR ( Amer) > 60 > 60 Est GFR (Non-Af Amer) > 60 > 60 Random Glucose 86 88 Calcium 9.5 9.4 Total Bilirubin 0.3 0.3 AST 55 42 ALT 86 H 89 H Alkaline Phosphatase 66 64 Total Protein 7.8 7.8 Albumin 4.2 4.2 Globulin 3.6 3.6 Albumin/Globulin Ratio 1.1 1.2 Vancomycin Trough 01/01/17 07:10 WBC RBC Hgb Hct MCV MCH MCHC RDW Plt Count Sodium Potassium Chloride Carbon Dioxide Anion Gap BUN Creatinine Est GFR ( Amer) Est GFR (Non-Af Amer) Random Glucose Calcium Total Bilirubin AST ALT Alkaline Phosphatase Total Protein Albumin Globulin Albumin/Globulin Ratio Vancomycin Trough 8.8 Microbiology 12/25/16 15:30 Blood-Venous Blood Culture - Final NO GROWTH AFTER 5 DAYS 12/25/16 15:30 Blood-Venous Gram Stain - Final TEST NOT PERFORMED 12/25/16 14:45 Blood-Venous Blood Culture - Final NO GROWTH AFTER 5 DAYS 12/25/16 14:45 Blood-Venous Gram Stain - Final TEST NOT PERFORMED 12/24/16 16:50 Blood Blood Culture - Final NO GROWTH AFTER 5 DAYS 12/24/16 16:50 Blood Gram Stain - Final TEST NOT PERFORMED 12/24/16 17:05 Blood Blood Culture - Final NO GROWTH AFTER 5 DAYS 12/24/16 17:05 Blood Gram Stain - Final TEST NOT PERFORMED 12/26/16 10:53 Knee - Right Gram Stain - Final 12/26/16 10:53 Knee - Right Anaerobic Culture - Final NO ANAEROBES ISOLATED. 12/26/16 10:53 Knee - Right Wound Culture - Final Methicillin Resistant S Aureus 12/27/16 10:53 Knee - Right Gram Stain - Final 12/27/16 10:53 Knee - Right Wound Culture - Final Methicillin Resistant S Aureus 12/27/16 10:53 Knee - Right Gram Stain - Final 12/27/16 10:53 Knee - Right Wound Culture - Final Methicillin Resistant S Aureus 12/27/16 10:53 Knee - Right Gram Stain - Final 12/27/16 10:53 Knee - Right Wound Culture - Final Methicillin Resistant S Aureus 12/27/16 10:53 Other: Please Indicate Mycobacterial Culture - Preliminary 12/27/16 10:53 Knee Right Fungal Culture - Preliminary Assessment and Plan (1) Cellulitis of knee Status: Acute (2) Abscess of bursa of right knee Status: Acute - Assessment and Plan (Free Text) Assessment: A/P- 41 year old male with no PMH presented with right knee erythema and swelling and pain. s/p I and D pod #5 for prepatellar septic bursitis afebrile past 5 days... blood cx- neg x 4 joint fluid cx- MRSA x 4 MRI report- NO Om as per report. plan- Advise to continue with IV vancomycin for MRSA septic bursitis. day #8. Keep trough <15 but above 10. Advised pt. to have 10 more days of Iv vancomyicn which can bed one as outpatient once pt. has picc line palced. advised to check trough after 3rd day and keep trough <15. advised pt. to f/u with me in offie in 2 weeks and to f/u with orthopedic Doctor as well. All above d/w patient at length and he verbalizes full understanding of all above.
[2017-01-01] MEDS ORDERED: Lidocaine 1% Inj (20ml) ONE (14:07)
--- NOTE | 2017-01-01 14:40 | CP.PCM.PCO ---
Assessment/Plan - Assessment/Plan Assessment (Free Text): Pt stable, ambulating on unit without distress. Pt seen and cleared for d/c home on IV abx by Dr. Carlson. Pt to continue IV vanco 1 gm q 12hr x 10 days. Pt to f/u with Dr. Carlson and Dr. Richard Barragan for continued treatment and care. Per CM, pt is covered 100% on home IV abx. Pt seen and cleared for d/c by Dr. Vee. Per Dr. Richard Barragan pt for d/c, he will come to see pt later. Pt and RN aware of d/c plan. Rx given to CM for abx and f/u blood work. - Problems Patient Problems: Problem List (Active/Current) Problem Status Onset Code Abscess of bursa of right knee Acute M71.061 Cellulitis of knee Acute L03.119
--- NOTE | 2017-01-01 15:10 | PCM.SURG1 ---
Surgeon's Initial Post Op Note - Surgeon's Notes Surgeon: Roge Milan MD Department [employer]: NONE Type of Anesthesia: Local Pre-Operative Diagnosis: Poor venous access Operative Findings: Patent right basilic vein. Post-Operative Diagnosis: Poor venous access Operation Performed: Single lumen picc placement right basilic vein, 39 cm. Tip in SVC. Specimen/Specimens Removed: None Estimated Blood Loss: EBL {In ML}: 2 Blood Products Given: N/A Drains Used: No Drains Post-Op Condition: Fair Date of Surgery/Procedure: 01/01/17 Time of Surgery/Procedure: 15:15
[2017-01-01 15:16] VITALS: TEMP 98.3
[2017-01-01 15:53] VITALS: BP 110/72; PULSE 80; RESP 17; O2SAT 98
--- NOTE | 2017-01-04 11:26 | VASCULAR ---
PROCEDURE: Date of procedure: 01/01/2017 Procedure: 1. Placement of a right arm PICC with ultrasound and fluoroscopic guidance, CPT 43036 2. PICC tip confirmation with spot radiograph and is in the superior vena cava Medications: 1 percent lidocaine Total Fluoro time: 8.1 seconds Radiation: 1 mGy EBL: 2 cc HISTORY: Poor venous access TECHNIQUE: Following informed consent and procedure time-out, the patient was placed supine on the interventional table and the right arm prepped and draped in the usual sterile fashion. Ultrasound showed a patent and compressible right basilic vein. After the skin was anesthetized with lidocaine, the basilic vein was accessed with micro micropuncture technique using ultrasound guidance. A guidewire was then advanced under fluoroscopic guidance into the superior vena cava. An image documenting ultrasound guidance for vascular access was permanently saved. The length of the single-lumen 4 Irish PICC was trimmed to 37 centimeters and advanced through a peel-away sheath. The PICC was position with tip of PICC confirm a spot radiograph the superior vena cava. The PICC was secured to the patient's skin. The PICC was flushed. A biopatch and sterile dressing was applied. IMPRESSION: Placement of a single-lumen 4 Irish PICC trimmed to 37 centimeters via right basilic vein. The tip of the PICC is confirmed with spot radiograph and is in the superior vena cava.
== END 2017-01-01 20:00 | disposition home health service (06) | DRG 501 ==
LOC: H.ER 16:00 → H.ERHOLD 18:57 → OBSVTOIN 18:57 → H.MEDSURG1 22:50
PROVIDERS: ADMIT Internal Medicine; ATTEND Internal Medicine
PROC: 3E0234Z Introduction of Serum, Toxoid and Vaccine into Muscle, Percutaneous Approach (ICD-10-PCS; 2016-12-24)
PROC: 0MBN0ZZ Excision of Right Knee Bursa and Ligament, Open Approach (ICD-10-PCS; principal; 2016-12-26 15:00)
PROC: 02HV33Z Insertion of Infusion Device into Superior Vena Cava, Percutaneous Approach (ICD-10-PCS; 2017-01-01)
PROC: 3E04329 Introduction of Other Anti-infective into Central Vein, Percutaneous Approach (ICD-10-PCS; 2017-01-01)
DX: M71.161 Other infective bursitis, right knee (principal); L03.115 Cellulitis of right lower limb; B95.62 Methicillin resistant Staphylococcus aureus infection as the cause of diseases classified elsewhere; S80.261A Insect bite (nonvenomous), right knee, initial encounter; Z23 Encounter for immunization